=== PATIENT | female | born 1950 | race Caucasian/White ===

== ENCOUNTER 2016-08-29 13:09 | Day surgery (SDC) | payer OTHER ==
[~2016-08-29] VITALS: Ht 167.6 cm; Wt 118.0 kg
[~2016-08-29 13:09] MED LIST: ALBUTEROL2.5 MG/3 M IH; ALLERGY MEDICIN25 M2 PO; ALPRAZOLAM0.5 MG PO; ALPRAZOLAM1 MG PO; ARTIFICIAL TEAR15 M6 BOTH EYES; ATARAX10 MG PO; ATIVAN1 MG PO; AUGMENTIN500 MG PO; BENADRYL25 MG PO; CALCIUM ACETAT667 M2 PO; CALCIUM ACETAT667 MG PO; CALPHRON667 MG PO; CELEXA10 MG PO; CHLORASEPTIC177 ML MM; CITALOPRAM HBR10 MG PO; COUMADIN6 MG PO; DEPAKENE250 MG/5 M PO; DEPAKOTE SPRIN125 MG PO; DEPAKOTE250 MG PO; DEPAKOTE500 MG PO; DILAUDID2 MG PO; DIPHEDRYL25 M3 PO; DULCOLAX10 MG PR; DURAGESIC25 MCG TD; ELIQUIS5 MG PO; EMLA 30 GM30 GM TP; FLEET ENEMA-AD118 ML PR; FLORINEF ACETA0.1 MG PO; FLUDROCORTISON0.1 M1 PO; GABAPENTIN300 MG PO; GERI-TUSSI100 MG/5 M PO; GUAIFENESIN WI120 M1 PO; HEPARIN SO5000 UNITS SC; HYDROMORPHONE HC2 MG PO; KAYEXALATE15 GM/60 M PO; KAYEXALATE453.6 GM PO; KEPPRA1000 MG PO; LEVETIRACETAM1000 MG PO; MIDODRINE HCL10 MG PO; MIRAPEX0.25 MG PO; NEPHRO-VITE,1 TABLET PO; NEURONTIN300 MG PO; OMEPRAZOLE20 MG PO; PRAMIPEXOLE D0.25 MG PO; PRILOSEC20 MG PO; PROAMATINE10 MG PO; PROMETHAZINE HC25 M1 PO; PROVENTIL,2.5 MG/3 M IH; RENVELA800 MG PO; ROBITUSSIN100 MG/51 PO; ROCEPHIN1 GM/50 ML IV; SARNA222 ML TP; SENNA8.6 MG PO; SENSIPAR30 MG PO; SENSIPAR90 MG PO; SKELAXIN800 MG PO; VALPROIC A250 MG/5 M PO; VALPROIC ACID250 MG PO; VANCOMYCIN HCL1 GM IV; VITAMIN D31000 UNI2 PO; WARFARIN SODIU2.5 MG PO; WARFARIN SODIU7.5 MG PO; WARFARIN SODIUM5 MG PO; XANAX0.5 MG PO; XANAX1 MG PO
[2016-08-29 14:40] LABS: METH RESISTANT S AUREUS PCR NEGATIVE (NEGATIVE)
[2016-08-29 14:42] LABS: PROBE CHECK PASS; SPECIMEN PROCESSING CONTROL PASS
== END 2016-08-29 16:11 ==
LOC: CATH 13:09
PROVIDERS: Surgery
PROC: B51W1ZZ Fluoroscopy of Dialysis Shunt/Fistula using Low Osmolar Contrast (ICD-10-PCS; principal; 2016-08-29)
PROC: 057Y3DZ Dilation of Upper Vein with Intraluminal Device, Percutaneous Approach (ICD-10-PCS; principal; 2016-08-29)
PROC: 05HY33Z Insertion of Infusion Device into Upper Vein, Percutaneous Approach (ICD-10-PCS; principal; 2016-08-29)
DX: T82.858A Stenosis of other vascular prosthetic devices, implants and grafts, initial encounter (principal); Y83.2 Surgical operation with anastomosis, bypass or graft as the cause of abnormal reaction of the patient, or of later complication, without mention of misadventure at the time of the procedure; N18.6 End stage renal disease; E03.9 Hypothyroidism, unspecified; Z86.718 Personal history of other venous thrombosis and embolism; Z86.711 Personal history of pulmonary embolism; J45.909 Unspecified asthma, uncomplicated; L93.2 Other local lupus erythematosus; M19.90 Unspecified osteoarthritis, unspecified site; Z79.51 Long term (current) use of inhaled steroids; Z90.5 Acquired absence of kidney
CPT/HCPCS: 87641; C1725; C1769; C1874; C1894; J1200; J1644; J2250; J2930; S0028

== ENCOUNTER 2016-09-04 07:33 | Inpatient (IN) | payer OTHER ==
[~2016-09-04] VITALS: Ht 167.6 cm; Wt 123.1 kg
[2016-09-04] MEDS ORDERED: ASPIR-LOW81 MG PO (08:35)
[2016-09-04 08:36] LABS: HEMATOCRIT 35.8 % (36.0-46.0); MCH 35.8 PG (29.0-34.0); MCHC 31.6 G/DL (30.0-36.0); MCV 113.3 FL (83-99); MEAN PLAT.VOLUME 10.8 uM^3 (9.5-12.4); PLATELET COUNT 101 K/uL (156-360); RBC DIS.WIDTH-CV 16.4 % (11.8-14.6); RBC DIS.WIDTH-SD 64.3 % (39-53); RED BLOOD COUNT 3.16 M/uL (3.80-5.20); WHITE BLOOD COUNT 5.8 K/uL (4.1-10.2)
[2016-09-04 08:47] LABS: CHLORIDE 97 mEq/L (99-109); POTASSIUM 3.9 mEq/L (3.7-5.4); SODIUM 139 mEq/L (136-147)
[2016-09-04 08:48] LABS: GLUCOSE 87 mg/dL (70-99)
[2016-09-04 08:50] LABS: ANION GAP 19 MEQ/L (2-14)
[2016-09-04 08:52] LABS: GFR ESTIMATE (CALCULATED) 5 mL/min/
[2016-09-04 08:53] LABS: UREA NITROGEN (BUN) 71 mg/dL (9-23)
[2016-09-04 08:57] LABS: TROP-I INTERPRETATION NEGATIVE; TROPONIN-I < 0.01 ng/mL (0.0-0.30)
[2016-09-04 14:31] VITALS: BP 132/51
[2016-09-04 18:29] LABS: TROP-I INTERPRETATION NEGATIVE; TROPONIN-I < 0.01 ng/mL (0.0-0.30)
[2016-09-05 00:05] VITALS: BP 88/46
[2016-09-05 01:47] VITALS: BP 94/42
[2016-09-05 04:56] VITALS: BP 88/44
[2016-09-05 07:01] LABS: ANION GAP 17 MEQ/L (2-14); CHLORIDE 100 MEQ/L (99-109); GFR ESTIMATE (CALCULATED) 4 mL/min/; POTASSIUM 4.5 MEQ/L (3.7-5.4); SAMPLE HEMOLYSIS CHECK 0; SAMPLE ICTERIC CHECK 0; SAMPLE LIPEMIA CHECK 0; SODIUM 141 MEQ/L (136-147); UREA NITROGEN (BUN) 88 mg/dL (9-23)
[2016-09-05 07:03] LABS: GLUCOSE 111 mg/dL (70-99)
[2016-09-05 08:15] VITALS: BP 131/81
[2016-09-05 08:50] LABS: HEMATOCRIT 32.4 % (36.0-46.0); MCH 36.8 PG (29.0-34.0); MCHC 32.4 G/DL (30.0-36.0); MCV 113.7 FL (83-99); MEAN PLAT.VOLUME 11.9 uM^3 (9.5-12.4); NRBC (%) 0.8 /100 WBC (0-0); PLATELET COUNT 110 K/uL (156-360); RBC DIS.WIDTH-CV 16.6 % (11.8-14.6); RBC DIS.WIDTH-SD 67.9 % (39-53); RED BLOOD COUNT 2.85 M/uL (3.80-5.20); WHITE BLOOD COUNT 4.5 K/uL (4.1-10.2)
[2016-09-05 08:54] LABS: TROP-I INTERPRETATION NEGATIVE; TROPONIN-I < 0.01 ng/mL (0.0-0.30)
[2016-09-05 09:16] LABS: EOSINOPHIL (%) 1.5 % (0-5); EOSINOPHIL COUNT 0.1 K/uL (0-0.3); IMMATURE GRANULOCYTE (%) 3.1 % (0.0-0.7); IMMATURE GRANULOCYTE COUNT 0.1 K/uL; LYMPHOCYTE COUNT 1.7 K/uL (1.0-2.8); MONOCYTE (%) 13.7 % (3-12); MONOCYTE COUNT 0.6 K/uL (0-0.8); NEUTROPHIL (%) 44.7 % (45-76)
[2016-09-05 09:24] LABS: HEMATOLOGY COMMENT 1 SMEAR COMPATIBLE; USER ID SDF
[2016-09-05 16:03] VITALS: BP 92/60
[2016-09-05 20:00] VITALS: BP 94/44
[2016-09-06 04:35] VITALS: BP 106/51
[2016-09-06 08:00] VITALS: BP 90/50
[2016-09-06 08:38] LABS: BASE EXCESS 3.7 mEq/L (-3 to +3); BICARBONATE 28.5 mEq/L (22-26); CARBOXY HGB 2.4 % (0-5); METHEMOGLOBIN 1.4 % (0-1.5); PCO2 43 mm Hg (35-45); PO2 67 mm Hg (80-100); pH 7.43 (7.35-7.45)
[2016-09-06 08:39] LABS: COMMENTS - BLOOD GASES C+; DEVICE RA; FI02 21 %; O2 FLOW 0 L/MIN; SITE LBRACH; TOTAL RESP RATE 16 resp/min
[2016-09-06 09:18] LABS: HEMATOCRIT 33.1 % (36.0-46.0); MCH 36.5 PG (29.0-34.0); MCHC 31.7 G/DL (30.0-36.0); MCV 114.9 FL (83-99); MEAN PLAT.VOLUME 11.5 uM^3 (9.5-12.4); PLATELET COUNT 117 K/uL (156-360); RBC DIS.WIDTH-CV 17.2 % (11.8-14.6); RBC DIS.WIDTH-SD 71.2 % (39-53); RED BLOOD COUNT 2.88 M/uL (3.80-5.20); WHITE BLOOD COUNT 4.7 K/uL (4.1-10.2)
[2016-09-06 09:26] LABS: ANION GAP 11 MEQ/L (2-14); CHLORIDE 101 MEQ/L (99-109); POTASSIUM 4.4 MEQ/L (3.7-5.4); SAMPLE HEMOLYSIS CHECK 0; SAMPLE ICTERIC CHECK 0; SAMPLE LIPEMIA CHECK 0; SODIUM 139 MEQ/L (136-147)
[2016-09-06 09:27] LABS: POINT-OF-CARE METER ID UU13113681; POINT-OF-CARE USER ID DROKMM72
[2016-09-06 09:32] LABS: GFR ESTIMATE (CALCULATED) 6 mL/min/; GLUCOSE 85 mg/dL (70-99); UREA NITROGEN (BUN) 46 mg/dL (9-23)
[2016-09-06 21:00] VITALS: BP 105/61
[2016-09-07 00:24] VITALS: BP 108/64
[2016-09-07 08:30] VITALS: BP 84/48
[2016-09-07 17:00] VITALS: BP 109/58
[2016-09-07 20:00] VITALS: BP 142/70
[2016-09-08 00:04] VITALS: BP 134/68
[2016-09-08 04:25] VITALS: BP 138/72
[2016-09-08 08:09] LABS: NRBC (%) 1.4 /100 WBC (0-0)
[2016-09-08 08:21] LABS: BASOPHIL COUNT 0.1 K/uL (0-0.1); EOSINOPHIL (%) 0.9 % (0-5); EOSINOPHIL COUNT 0.1 K/uL (0-0.3); HEMATOCRIT 32.6 % (36.0-46.0); IMMATURE GRANULOCYTE (%) 3.2 % (0.0-0.7); IMMATURE GRANULOCYTE COUNT 0.2 K/uL; LYMPHOCYTE COUNT 2.4 K/uL (1.0-2.8); MCH 36.4 PG (29.0-34.0); MCHC 31.6 G/DL (30.0-36.0); MCV 115.2 FL (83-99); MEAN PLAT.VOLUME 10.9 uM^3 (9.5-12.4); MONOCYTE COUNT 0.7 K/uL (0-0.8); PLATELET COUNT 107 K/uL (156-360); RBC DIS.WIDTH-CV 17.4 % (11.8-14.6); RBC DIS.WIDTH-SD 71.2 % (39-53); RED BLOOD COUNT 2.83 M/uL (3.80-5.20)
[2016-09-08 08:23] LABS: WHITE BLOOD COUNT 7.5 K/uL (4.1-10.2)
[2016-09-08 08:38] LABS: ANION GAP 14 MEQ/L (2-14); CHLORIDE 98 MEQ/L (99-109); GFR ESTIMATE (CALCULATED) 6 mL/min/; GLUCOSE 99 mg/dL (70-99); SAMPLE HEMOLYSIS CHECK 0; SAMPLE ICTERIC CHECK 0; SAMPLE LIPEMIA CHECK 0; SODIUM 133 MEQ/L (136-147); UREA NITROGEN (BUN) 55 mg/dL (9-23)
[2016-09-08 08:39] LABS: POTASSIUM 5.4 MEQ/L (3.7-5.4)
[2016-09-08 08:43] LABS: HEMATOLOGY COMMENT 1 SMEAR COMPATIBLE; PLAT.SUFFICIENCY DECREASED
[2016-09-08 17:25] VITALS: BP 136/58
[2016-09-08 20:28] VITALS: BP 140/66
[2016-09-09 00:32] VITALS: BP 148/70
[2016-09-09 04:02] VITALS: BP 143/68
[2016-09-09 05:35] LABS: HEMATOCRIT 38.1 % (36.0-46.0); MCH 37.4 PG (29.0-34.0); MCHC 32.8 G/DL (30.0-36.0); MCV 114.1 FL (83-99); MEAN PLAT.VOLUME 11.7 uM^3 (9.5-12.4); PLATELET COUNT 128 K/uL (156-360); RBC DIS.WIDTH-SD 71.7 % (39-53); RED BLOOD COUNT 3.34 M/uL (3.80-5.20); WHITE BLOOD COUNT 10.8 K/uL (4.1-10.2)
[2016-09-09 06:15] LABS: METH RESISTANT S AUREUS PCR NEGATIVE (NEGATIVE)
[2016-09-09 06:16] LABS: PROBE CHECK PASS; SPECIMEN PROCESSING CONTROL PASS
[2016-09-09 06:31] LABS: ANION GAP 16 MEQ/L (2-14); CHLORIDE 95 MEQ/L (99-109); GFR ESTIMATE (CALCULATED) 8 mL/min/; GLUCOSE 119 mg/dL (70-99); POTASSIUM 5.2 MEQ/L (3.7-5.4); SAMPLE HEMOLYSIS CHECK 0; SAMPLE ICTERIC CHECK 0; SAMPLE LIPEMIA CHECK 0; SODIUM 133 MEQ/L (136-147); UREA NITROGEN (BUN) 43 mg/dL (9-23)
[2016-09-09 19:53] VITALS: BP 129/42
[2016-09-10 06:03] LABS: HEMATOCRIT 33.9 % (36.0-46.0); MCH 36.3 PG (29.0-34.0); MCHC 32.2 G/DL (30.0-36.0); MEAN PLAT.VOLUME 11.1 uM^3 (9.5-12.4); NRBC (%) 1.3 /100 WBC (0-0); PLATELET COUNT 99 K/uL (156-360); RBC DIS.WIDTH-CV 18.1 % (11.8-14.6); RBC DIS.WIDTH-SD 72.7 % (39-53)
[2016-09-10 06:14] LABS: BASOPHIL COUNT 0.1 K/uL (0-0.1); EOSINOPHIL (%) 0.9 % (0-5); EOSINOPHIL COUNT 0.1 K/uL (0-0.3); IMMATURE GRANULOCYTE (%) 2.4 % (0.0-0.7); IMMATURE GRANULOCYTE COUNT 0.3 K/uL; LYMPHOCYTE COUNT 2.3 K/uL (1.0-2.8); MONOCYTE (%) 9.4 % (3-12); NEUTROPHIL (%) 66.2 % (45-76); NEUTROPHIL COUNT 7.3 K/uL (1.8-6.4)
[2016-09-10 06:45] LABS: ANION GAP 19 MEQ/L (2-14); CHLORIDE 95 MEQ/L (99-109); GLUCOSE 101 mg/dL (70-99); POTASSIUM 4.8 MEQ/L (3.7-5.4); SAMPLE HEMOLYSIS CHECK 0; SAMPLE ICTERIC CHECK 0; SAMPLE LIPEMIA CHECK 0; SODIUM 134 MEQ/L (136-147); UREA NITROGEN (BUN) 64 mg/dL (9-23)
[2016-09-10 06:47] LABS: ANISOCYTOSIS 2+; MACROCYTES 1+; MICROCYTOSIS 1+; OVALOCYTES 1+; PLAT.SUFFICIENCY DECREASED; SPHEROCYTES 1+
[2016-09-10 06:51] LABS: GFR ESTIMATE (CALCULATED) 6 mL/min/
[2016-09-10 08:03] VITALS: BP 124/68
[2016-09-10 12:09] VITALS: BP 128/66
[2016-09-10 15:43] VITALS: BP 117/69
[2016-09-11 05:34] LABS: HEMATOCRIT 32.1 % (36.0-46.0); MCH 35.8 PG (29.0-34.0); MCHC 31.5 G/DL (30.0-36.0); MCV 113.8 FL (83-99); MEAN PLAT.VOLUME 10.9 uM^3 (9.5-12.4); PLATELET COUNT 88 K/uL (156-360); RBC DIS.WIDTH-CV 18.2 % (11.8-14.6); RBC DIS.WIDTH-SD 72.5 % (39-53); RED BLOOD COUNT 2.82 M/uL (3.80-5.20); WHITE BLOOD COUNT 9.7 K/uL (4.1-10.2)
[2016-09-11 06:18] LABS: EOSINOPHIL (%) 1.2 % (0-5); EOSINOPHIL COUNT 0.1 K/uL (0-0.3); IMMATURE GRANULOCYTE (%) 2.3 % (0.0-0.7); IMMATURE GRANULOCYTE COUNT 0.2 K/uL; LYMPHOCYTE COUNT 2.3 K/uL (1.0-2.8); MONOCYTE (%) 9.9 % (3-12); NEUTROPHIL (%) 62.5 % (45-76); NEUTROPHIL COUNT 6.1 K/uL (1.8-6.4)
[2016-09-11 06:20] LABS: HEMATOLOGY COMMENT 1 REV; USER ID SLU
[2016-09-11 06:24] LABS: ANION GAP 18 MEQ/L (2-14); CHLORIDE 95 MEQ/L (99-109); GFR ESTIMATE (CALCULATED) 4 mL/min/; GLUCOSE 84 mg/dL (70-99); POTASSIUM 5.1 MEQ/L (3.7-5.4); SAMPLE HEMOLYSIS CHECK 0; SAMPLE ICTERIC CHECK 0; SAMPLE LIPEMIA CHECK 0; SODIUM 134 MEQ/L (136-147); UREA NITROGEN (BUN) 77 mg/dL (9-23)
[2016-09-11 09:36] LABS: ANION GAP 21 MEQ/L (2-14); CHLORIDE 94 MEQ/L (99-109); GFR ESTIMATE (CALCULATED) 5 mL/min/; POTASSIUM 4.6 MEQ/L (3.7-5.4); SAMPLE HEMOLYSIS CHECK 0; SAMPLE ICTERIC CHECK 0; SAMPLE LIPEMIA CHECK 0; SODIUM 133 MEQ/L (136-147); UREA NITROGEN (BUN) 79 mg/dL (9-23)
[2016-09-11 09:39] LABS: GLUCOSE 113 mg/dL (70-99)
[2016-09-12] MEDS ORDERED: LEVAQUIN500 MG PO ×2 (12:19→12:53)
== END 2016-09-12 15:03 | DRG 193 ==
LOC: EME 07:33 → EDOF 10:35 → 5WEST 10:35 → EDOF 11:25 → 5WEST 14:10 → 3EAST 09-06 23:12 → 5WEST 09-06 23:12 → 3EAST 09-07 03:44
PROVIDERS: Emergency Medicine; Hospitalist; Internal Medicine; Internal Medicine Nephrology; Physician Assistant; Student in an Organized Health Care Education/Training Program
PROC: 5A1D60Z (ICD-10-PCS; principal; 2016-09-05)
DX: J18.9 Pneumonia, unspecified organism (principal); N18.6 End stage renal disease; Y95 Nosocomial condition; R07.9 Chest pain, unspecified; N25.81 Secondary hyperparathyroidism of renal origin; G40.909 Epilepsy, unspecified, not intractable, without status epilepticus; I95.89 Other hypotension; E66.01 Morbid (severe) obesity due to excess calories; Z68.41 Body mass index [BMI] 40.0-44.9, adult; J96.11 Chronic respiratory failure with hypoxia; Z99.81 Dependence on supplemental oxygen; Z99.2 Dependence on renal dialysis; Z86.711 Personal history of pulmonary embolism; Z86.718 Personal history of other venous thrombosis and embolism; Z85.528 Personal history of other malignant neoplasm of kidney; Z90.5 Acquired absence of kidney; K21.9 Gastro-esophageal reflux disease without esophagitis; F32.9 Major depressive disorder, single episode, unspecified; J44.9 Chronic obstructive pulmonary disease, unspecified; D64.9 Anemia, unspecified; G62.9 Polyneuropathy, unspecified; G89.29 Other chronic pain
CPT/HCPCS: 36600; 70450; 71020; 71250; 80048; 80048 91; 80069; 80164; 80185; 82140; 82803; 82948; 84484; 85025; 85025 91; 85027; 87070; 87205; 87641; 93005; 94760; 94799; 99202; 99281; 99285; G0378; J0456; J0692; J0780; J1100; J1270; J1644; J7030; J7050

== ENCOUNTER 2016-09-20 12:15 | Inpatient (IN) | payer OTHER ==
[~2016-09-20] VITALS: Ht 167.6 cm; Wt 115.6 kg
[~2016-09-20 12:15] MED LIST changes: +ASPIR-LOW81 MG PO; +LEVAQUIN500 MG PO
[2016-09-20 14:45] LABS: CHLORIDE 98 mEq/L (99-109); INTER. NORMALIZED RATIO 1.1; POTASSIUM 3.2 mEq/L (3.7-5.4); PROTHROMBIN TIME 10.7 (9.2-11.2); PTT 28.3 (25-32)
[2016-09-20 14:46] LABS: EOSINOPHIL (%) 0.9 % (0-5); EOSINOPHIL COUNT 0.1 K/uL (0-0.3); HEMATOCRIT 32.8 % (36.0-46.0); IMMATURE GRANULOCYTE (%) 1.8 % (0.0-0.7); IMMATURE GRANULOCYTE COUNT 1.2 K/uL; LYMPHOCYTE COUNT 1.2 K/uL (1.0-2.8); MCH 36.4 PG (29.0-34.0); MCHC 31.7 G/DL (30.0-36.0); MCV 114.7 FL (83-99); MEAN PLAT.VOLUME 9.8 uM^3 (9.5-12.4); MONOCYTE (%) 9.6 % (3-12); MONOCYTE COUNT 0.6 K/uL (0-0.8); NEUTROPHIL (%) 69.7 % (45-76); NEUTROPHIL COUNT 4.5 K/uL (1.8-6.4); PLATELET COUNT 155 K/uL (156-360); RBC DIS.WIDTH-CV 17.5 % (11.8-14.6); RBC DIS.WIDTH-SD 71.2 % (39-53); RED BLOOD COUNT 2.86 M/uL (3.80-5.20); SODIUM 138 mEq/L (136-147); WHITE BLOOD COUNT 6.5 K/uL (4.1-10.2)
[2016-09-20 14:47] LABS: GLUCOSE 92 mg/dL (70-99)
[2016-09-20 14:49] LABS: ANION GAP 11 MEQ/L (2-14)
[2016-09-20 14:51] LABS: GFR ESTIMATE (CALCULATED) 14 mL/min/
[2016-09-20 14:52] LABS: UREA NITROGEN (BUN) 20 mg/dL (9-23)
[2016-09-20 15:22] LABS: TROP-I INTERPRETATION NEGATIVE; TROPONIN-I 0.03 ng/mL (0.0-0.30)
[2016-09-20] MEDS ORDERED: TYLENOL REGULA325 MG PO (16:19)
[2016-09-20] MEDS ORDERED: NITROSTAT0.4 MG SL (16:20)
[2016-09-20] MEDS ORDERED: DULCOLAX10 MG PR (16:20)
[2016-09-20 16:43] LABS: TROP-I INTERPRETATION NEGATIVE; TROPONIN-I 0.03 ng/mL (0.0-0.30)
[2016-09-20 18:02] VITALS: BP 88/45
[2016-09-20 20:02] VITALS: BP 88/52
[2016-09-20 21:39] LABS: POINT-OF-CARE METER ID UU13113781
[2016-09-20 22:25] LABS: TROP-I INTERPRETATION NEGATIVE; TROPONIN-I 0.02 ng/mL (0.0-0.30)
[2016-09-20 23:35] VITALS: BP 89/49
[2016-09-21 04:07] VITALS: BP 84/51
[2016-09-21 08:09] LABS: METH RESISTANT S AUREUS PCR NEGATIVE (NEGATIVE)
[2016-09-21 08:11] LABS: PROBE CHECK PASS; SPECIMEN PROCESSING CONTROL PASS
[2016-09-21 08:30] VITALS: BP 104/49
[2016-09-21 10:52] LABS: ANION GAP 14 MEQ/L (2-14); CHLORIDE 102 MEQ/L (99-109); POTASSIUM 3.6 MEQ/L (3.7-5.4); SAMPLE HEMOLYSIS CHECK 0; SAMPLE ICTERIC CHECK 0; SAMPLE LIPEMIA CHECK 0; SODIUM 139 MEQ/L (136-147)
[2016-09-21 10:57] LABS: GFR ESTIMATE (CALCULATED) 9 mL/min/; GLUCOSE 89 mg/dL (70-99)
[2016-09-21 11:17] LABS: UREA NITROGEN (BUN) 31 mg/dL (9-23)
[2016-09-21 12:20] VITALS: BP 80/41
[2016-09-21 16:45] VITALS: BP 86/54
[2016-09-21 20:00] VITALS: BP 100/48
[2016-09-22] VITALS: BP 98/59
[2016-09-22 04:00] VITALS: BP 95/57
[2016-09-22 07:54] LABS: HEMATOCRIT 27.4 % (36.0-46.0); MCH 35.8 PG (29.0-34.0); MCHC 31.4 G/DL (30.0-36.0); MCV 114.2 FL (83-99); MEAN PLAT.VOLUME 10.6 uM^3 (9.5-12.4); PLATELET COUNT 127 K/uL (156-360); RBC DIS.WIDTH-CV 17.5 % (11.8-14.6); RBC DIS.WIDTH-SD 71.7 % (39-53); WHITE BLOOD COUNT 4.7 K/uL (4.1-10.2)
[2016-09-22 08:09] LABS: EOSINOPHIL (%) 2.8 % (0-5); EOSINOPHIL COUNT 0.1 K/uL (0-0.3); IMMATURE GRANULOCYTE (%) 1.5 % (0.0-0.7); IMMATURE GRANULOCYTE COUNT 0.1 K/uL; LYMPHOCYTE COUNT 1.5 K/uL (1.0-2.8); MONOCYTE (%) 11.3 % (3-12); MONOCYTE COUNT 0.5 K/uL (0-0.8); NEUTROPHIL (%) 52.6 % (45-76); NEUTROPHIL COUNT 2.5 K/uL (1.8-6.4)
[2016-09-22 08:12] LABS: ANION GAP 12 MEQ/L (2-14); CHLORIDE 101 MEQ/L (99-109); GLUCOSE 100 mg/dL (70-99); POTASSIUM 3.6 MEQ/L (3.7-5.4); SAMPLE HEMOLYSIS CHECK 0; SAMPLE ICTERIC CHECK 0; SAMPLE LIPEMIA CHECK 0; SODIUM 138 MEQ/L (136-147)
[2016-09-22 08:13] LABS: GFR ESTIMATE (CALCULATED) 8 mL/min/; UREA NITROGEN (BUN) 49 mg/dL (9-23)
[2016-09-22 11:47] VITALS: BP 77/34
[2016-09-22 17:00] VITALS: BP 101/52
[2016-09-22 19:45] VITALS: BP 88/54
[2016-09-22 23:50] VITALS: BP 90/51
[2016-09-23 03:20] VITALS: BP 80/51
[2016-09-23 08:30] VITALS: BP 81/45
[2016-09-23 12:19] VITALS: BP 97/46
[2016-09-23 15:01] LABS: POC NON-PRINT COM 1 ND
[2016-09-23 15:15] LABS: HEMATOCRIT 28.6 % (36.0-46.0); MCH 35.7 PG (29.0-34.0); MCHC 31.5 G/DL (30.0-36.0); MCV 113.5 FL (83-99); MEAN PLAT.VOLUME 10.6 uM^3 (9.5-12.4); PLATELET COUNT 127 K/uL (156-360); RBC DIS.WIDTH-CV 17.4 % (11.8-14.6); RBC DIS.WIDTH-SD 71.3 % (39-53); RED BLOOD COUNT 2.52 M/uL (3.80-5.20); WHITE BLOOD COUNT 4.8 K/uL (4.1-10.2)
[2016-09-23 15:23] LABS: EOSINOPHIL (%) 3.5 % (0-5); EOSINOPHIL COUNT 0.2 K/uL (0-0.3); IMMATURE GRANULOCYTE (%) 1.2 % (0.0-0.7); IMMATURE GRANULOCYTE COUNT 0.1 K/uL; LYMPHOCYTE COUNT 1.5 K/uL (1.0-2.8); MONOCYTE (%) 8.5 % (3-12); MONOCYTE COUNT 0.4 K/uL (0-0.8); NEUTROPHIL (%) 54.9 % (45-76); NEUTROPHIL COUNT 2.6 K/uL (1.8-6.4)
[2016-09-23 16:00] VITALS: BP 105/52
[2016-09-23 20:34] VITALS: BP 86/39
[2016-09-24] VITALS (7 sets, daily range): BP systolic 72–86; BP diastolic 43–51
[2016-09-24 07:49] LABS: HEMATOCRIT 28.8 % (36.0-46.0); MCH 35.7 PG (29.0-34.0); MCHC 31.6 G/DL (30.0-36.0); MCV 112.9 FL (83-99); MEAN PLAT.VOLUME 10.6 uM^3 (9.5-12.4); PLATELET COUNT 121 K/uL (156-360); RBC DIS.WIDTH-CV 17.3 % (11.8-14.6); RBC DIS.WIDTH-SD 71.4 % (39-53); RED BLOOD COUNT 2.55 M/uL (3.80-5.20)
[2016-09-24 08:13] LABS: IRON 46 MCG/DL (35-150)
[2016-09-24 08:31] LABS: FERRITIN 823 NG/ML (10-291)
[2016-09-24 14:24] LABS: POINT-OF-CARE METER ID UU13113781
[2016-09-24 16:41] LABS: ALKALINE PHOSPHATASE 133 IU/L (3-129); AMYLASE 28 IU/L (1-118); DIRECT BILIRUBIN 0.2 mg/dL (0.0-0.3); TOTAL BILIRUBIN 0.3 MG/DL (0.0-1.0)
[2016-09-25] VITALS (10 sets, daily range): BP systolic 72–83; BP diastolic 32–46
[2016-09-25 09:15] LABS: CHLORIDE 102 mEq/L (99-109); POTASSIUM 4.1 mEq/L (3.7-5.4); SODIUM 139 mEq/L (136-147)
[2016-09-25 09:17] LABS: GLUCOSE 101 mg/dL (70-99)
[2016-09-25 09:18] LABS: ANION GAP 19 MEQ/L (2-14)
[2016-09-25 09:21] LABS: GFR ESTIMATE (CALCULATED) 7 mL/min/
[2016-09-25 09:24] LABS: UREA NITROGEN (BUN) 76 mg/dL (9-23)
[2016-09-25 09:41] LABS: HEMATOCRIT 27.7 % (36.0-46.0); MCH 35.3 PG (29.0-34.0); MCHC 32.1 G/DL (30.0-36.0); MCV 109.9 FL (83-99); PLATELET COUNT 133 K/uL (156-360); RBC DIS.WIDTH-CV 17.1 % (11.8-14.6); RBC DIS.WIDTH-SD 68.7 % (39-53); RED BLOOD COUNT 2.52 M/uL (3.80-5.20); WHITE BLOOD COUNT 7.7 K/uL (4.1-10.2)
[2016-09-25 09:42] LABS: EOSINOPHIL (%) 2.5 % (0-5); EOSINOPHIL COUNT 0.2 K/uL (0-0.3); IMMATURE GRANULOCYTE (%) 0.8 % (0.0-0.7); IMMATURE GRANULOCYTE COUNT 0.1 K/uL; LYMPHOCYTE COUNT 1.4 K/uL (1.0-2.8); MONOCYTE COUNT 0.5 K/uL (0-0.8); NEUTROPHIL (%) 72.9 % (45-76); NEUTROPHIL COUNT 5.6 K/uL (1.8-6.4)
[2016-09-26 03:35] VITALS: BP 78/37
[2016-09-26 08:44] VITALS: BP 75/39
[2016-09-26 12:02] VITALS: BP 82/41
[2016-09-26 15:04] VITALS: BP 79/40
[2016-09-26 19:15] VITALS: BP 78/44
[2016-09-26 23:06] VITALS: BP 77/42
[2016-09-27 03:05] VITALS: BP 100/50
[2016-09-27 07:27] VITALS: BP 98/44
[2016-09-27 08:58] LABS: HEMATOCRIT 27.9 % (36.0-46.0); MCH 35.6 PG (29.0-34.0); MCHC 32.3 G/DL (30.0-36.0); MCV 110.3 FL (83-99); RBC DIS.WIDTH-CV 16.8 % (11.8-14.6); RED BLOOD COUNT 2.53 M/uL (3.80-5.20); WHITE BLOOD COUNT 5.4 K/uL (4.1-10.2)
[2016-09-27 09:10] LABS: ANION GAP 18 MEQ/L (2-14); CHLORIDE 94 MEQ/L (99-109); SAMPLE HEMOLYSIS CHECK 0; SAMPLE ICTERIC CHECK 0; SAMPLE LIPEMIA CHECK 0; SODIUM 135 MEQ/L (136-147)
[2016-09-27 09:23] LABS: GFR ESTIMATE (CALCULATED) 9 mL/min/; GLUCOSE 85 mg/dL (70-99); UREA NITROGEN (BUN) 58 mg/dL (9-23)
[2016-09-27 10:14] LABS: EOSINOPHIL (%) 2.4 % (0-5); EOSINOPHIL COUNT 0.1 K/uL (0-0.3); IMMATURE GRANULOCYTE (%) 1.3 % (0.0-0.7); IMMATURE GRANULOCYTE COUNT 0.1 K/uL; LYMPHOCYTE COUNT 1.3 K/uL (1.0-2.8); MEAN PLAT.VOLUME 11.6 uM^3 (9.5-12.4); MONOCYTE COUNT 0.5 K/uL (0-0.8); NEUTROPHIL (%) 62.9 % (45-76); NEUTROPHIL COUNT 3.4 K/uL (1.8-6.4); PLAT.SUFFICIENCY ADEQUATE; USER ID STC
[2016-09-27 12:54] VITALS: BP 75/41
[2016-09-27] MEDS ORDERED: BENTYL20 MG PO (14:18)
[2016-09-27] MEDS ORDERED: PROMETHAZINE HC25 M1 PO (14:18)
[2016-09-27] MEDS ORDERED: ASPIR-LOW81 MG PO (14:19)
[2016-09-27] MEDS ORDERED: HYDROXYZINE PAM25 MG PO (14:20)
[2016-09-27] MEDS ORDERED: COMPAZINE10 MG PO (14:21)
[2016-09-27] MEDS ORDERED: POLYETHYLENE GL17 GM PO (14:21)
[2016-09-27] MEDS ORDERED: RENVELA800 MG PO (14:21)
[2016-09-27] MEDS ORDERED: HECTOROL4 MCG/2 M1 IV (14:22)
[2016-09-27] MEDS ORDERED: ONDANSETRON ODT4 MG PO (14:22)
[2016-09-27] MEDS ORDERED: NEPHRO-VITE,1 TABLET PO (14:22)
[2016-09-27] MEDS ORDERED: VITAMIN D-32000 UNI2 PO (14:22)
[2016-09-27] MEDS ORDERED: PANTOPRAZOLE SO40 MG PO (14:22)
[2016-09-27] MEDS ORDERED: ALPRAZOLAM0.5 MG PO (14:23)
[2016-09-27] MEDS ORDERED: DILAUDID2 MG PO (14:23)
[2016-09-27 16:41] VITALS: BP 78/40
[2016-09-27 22:43] LABS: AP Bone Isoenzyme 74 % (28-66); AP Intestine Isoenzyme 0 % (1-24); AP Liver Isoenzyme 26 % (25-69); AP Macrohepatic Isoenzyme 0 % (<=0); AP Placental Isoenzyme 0 % (<=0); Alkaline Phosphatase, Total 162 U/L (33-130)
== END 2016-09-27 17:18 | DRG 602 ==
LOC: EME 12:15 → EDOF 14:08 → 4EAST 14:08 → EDOF 14:15 → 4EAST 17:49
PROVIDERS: Emergency Medicine; Family Medicine; Internal Medicine Nephrology; Specialist
PROC: 5A1D60Z (ICD-10-PCS; principal; 2016-09-22)
DX: L03.116 Cellulitis of left lower limb (principal); N18.6 End stage renal disease; I24.8 Other forms of acute ischemic heart disease; I95.9 Hypotension, unspecified; Z91.19 Patient's noncompliance with other medical treatment and regimen; J96.10 Chronic respiratory failure, unspecified whether with hypoxia or hypercapnia; R07.9 Chest pain, unspecified; Z99.2 Dependence on renal dialysis; J44.9 Chronic obstructive pulmonary disease, unspecified; R26.2 Difficulty in walking, not elsewhere classified; K21.9 Gastro-esophageal reflux disease without esophagitis; D64.9 Anemia, unspecified; G62.9 Polyneuropathy, unspecified; Z86.718 Personal history of other venous thrombosis and embolism; Z86.711 Personal history of pulmonary embolism; G25.81 Restless legs syndrome; Z90.5 Acquired absence of kidney; G40.909 Epilepsy, unspecified, not intractable, without status epilepticus; E21.3 Hyperparathyroidism, unspecified; I12.0 Hypertensive chronic kidney disease with stage 5 chronic kidney disease or end stage renal disease; K92.1 Melena; Z74.01 Bed confinement status; D69.6 Thrombocytopenia, unspecified
CPT/HCPCS: 71010; 76937; 80048; 80069; 80076; 80202; 82150; 82272; 82533 91; 82607; 82728; 82746; 82948; 83540; 83605; 84075 90; 84080 90; 84466; 84484; 85025; 85025 91; 85027; 85610; 85730; 87040; 87641; 93005; 94799; 99281; 99285; C1894; J0692; J1270; J1644; J3370; J7040; J7050; P9047

== ENCOUNTER 2016-10-16 12:48 | Inpatient (IN) | payer OTHER ==
[~2016-10-16] VITALS: Ht 167.6 cm; Wt 129.3 kg
[~2016-10-16 12:48] MED LIST changes: +BENTYL20 MG PO; +COMPAZINE10 MG PO; +HECTOROL4 MCG/2 M1 IV; +HYDROXYZINE PAM25 MG PO; +NITROSTAT0.4 MG SL; +ONDANSETRON ODT4 MG PO; +PANTOPRAZOLE SO40 MG PO; +POLYETHYLENE GL17 GM PO; +TYLENOL REGULA325 MG PO; +VITAMIN D-32000 UNI2 PO
[2016-10-16] MEDS ORDERED: DILAUDID2 MG PO ×2 (13:21→13:34)
[2016-10-16] MEDS ORDERED: SENNA8.6 MG PO (13:23)
[2016-10-16] MEDS ORDERED: PROAMATINE10 MG PO ×2 (13:24→13:32)
[2016-10-16] MEDS ORDERED: XANAX0.5 MG PO ×2 (13:26→13:35)
[2016-10-16] MEDS ORDERED: PROMETHAZINE HC25 M1 PO (13:36)
[2016-10-16] MEDS ORDERED: LIDOCAINE-PRIL1 EACH TP (13:37)
[2016-10-16] MEDS ORDERED: MILK OF MAGN PO (13:39)
[2016-10-16 13:52] LABS: CHLORIDE 99 mEq/L (99-109); POTASSIUM 3.5 mEq/L (3.7-5.4); SODIUM 140 mEq/L (136-147)
[2016-10-16 13:54] LABS: GLUCOSE 97 mg/dL (70-99)
[2016-10-16 13:55] LABS: ANION GAP 11 MEQ/L (2-14)
[2016-10-16 13:56] LABS: TOTAL BILIRUBIN 0.4 mg/dL (0.0-1.0)
[2016-10-16 13:58] LABS: ALKALINE PHOSPHATASE 183 IU/L (3-129); GFR ESTIMATE (CALCULATED) 11 mL/min/
[2016-10-16 13:59] LABS: UREA NITROGEN (BUN) 20 mg/dL (9-23)
[2016-10-16 14:00] LABS: DIRECT BILIRUBIN 0.2 mg/dL (0.0-0.3)
[2016-10-16 14:01] LABS: LIPASE 10 U/L (1.0-51.0)
[2016-10-16 14:02] LABS: CREATINE KINASE 13 IU/L (1-294)
[2016-10-16 14:08] LABS: EOSINOPHIL (%) 1.1 % (0-5); EOSINOPHIL COUNT 0.1 K/uL (0-0.3); HEMATOCRIT 38.7 % (36.0-46.0); IMMATURE GRANULOCYTE (%) 1.9 % (0.0-0.7); IMMATURE GRANULOCYTE COUNT 0.9 K/uL; LYMPHOCYTE COUNT 1.2 K/uL (1.0-2.8); MCH 35.1 PG (29.0-34.0); MCV 113.2 FL (83-99); MONOCYTE (%) 9.1 % (3-12); MONOCYTE COUNT 0.4 K/uL (0-0.8); NEUTROPHIL (%) 62.3 % (45-76); NEUTROPHIL COUNT 2.9 K/uL (1.8-6.4); RBC DIS.WIDTH-CV 16.6 % (11.8-14.6); RBC DIS.WIDTH-SD 66.8 % (39-53); TROP-I INTERPRETATION NEGATIVE; TROPONIN-I < 0.01 ng/mL (0.0-0.30); WHITE BLOOD COUNT 4.6 K/uL (4.1-10.2)
[2016-10-16 14:10] LABS: RED BLOOD COUNT 3.42 M/uL (3.80-5.20)
[2016-10-16 14:17] LABS: HEMATOLOGY COMMENT 1 SMEAR COMPATIBLE; MEAN PLAT.VOLUME 10.9 uM^3 (9.5-12.4); PLAT.SUFFICIENCY DECREASED; USER ID TLW
[2016-10-16 14:20] LABS: PLATELET COUNT 84 K/uL (156-360)
[2016-10-16 14:29] LABS: ADD MIUA? YES; BILIRUBIN NEGATIVE; BLOOD MODERATE; COLOR YELLOW ((YELLOW)); GLUCOSE (STRIP) NEGATIVE; KETONES NEGATIVE; LEUKOCYTES NEGATIVE; NITRITE NEGATIVE; PROTEIN (STRIP) 100; SPECIFIC GRAVITY 1.011 (1.000-1.030); UROBILINOGEN 0.2 MG/DL (0.2-1.0)
[2016-10-16 14:40] LABS: BACTERIA NONE SEEN /HPF; EPITHELIAL CELLS RARE /HPF; MUCUS NONE SEEN /LPF; RED BLOOD CELLS 0-5 /HPF (0-5); UCUL ADDED? NO; WHITE BLOOD CELLS 0-5 /HPF (0-5)
[2016-10-16 19:06] LABS: INTER. NORMALIZED RATIO 1.1; PROTHROMBIN TIME 11.4 (9.2-11.2); PTT 26.8 (25-32)
[2016-10-16 20:00] VITALS: BP 125/80
[2016-10-16 23:30] VITALS: BP 86/43
[2016-10-17 03:45] VITALS: BP 82/35
[2016-10-17 09:34] VITALS: BP 105/46
[2016-10-17 09:46] LABS: HEMATOCRIT 32.5 % (36.0-46.0); MCH 35.2 PG (29.0-34.0); MCHC 31.4 G/DL (30.0-36.0); MCV 112.1 FL (83-99); MEAN PLAT.VOLUME 11.4 uM^3 (9.5-12.4); PLATELET COUNT 89 K/uL (156-360); RBC DIS.WIDTH-CV 16.9 % (11.8-14.6); RBC DIS.WIDTH-SD 68.9 % (39-53); WHITE BLOOD COUNT 3.2 K/uL (4.1-10.2)
[2016-10-17 16:45] VITALS: BP 113/64
== END 2016-10-17 19:02 | disposition short-term general hospital (02) | DRG 299 ==
LOC: EME → EDBD 12:48 → EME 12:48 → EDOF 17:46 → 5EAST 17:46
PROVIDERS: Emergency Medicine; Family Medicine
DX: I82.423 Acute embolism and thrombosis of iliac vein, bilateral (principal); N18.6 End stage renal disease; J96.11 Chronic respiratory failure with hypoxia; I95.9 Hypotension, unspecified; E66.01 Morbid (severe) obesity due to excess calories; Z68.42 Body mass index [BMI] 45.0-49.9, adult; Z85.528 Personal history of other malignant neoplasm of kidney; J44.9 Chronic obstructive pulmonary disease, unspecified; G40.909 Epilepsy, unspecified, not intractable, without status epilepticus; G89.29 Other chronic pain; Z86.711 Personal history of pulmonary embolism; Z86.718 Personal history of other venous thrombosis and embolism; R26.2 Difficulty in walking, not elsewhere classified; G57.93 Unspecified mononeuropathy of bilateral lower limbs; Z99.2 Dependence on renal dialysis; R00.0 Tachycardia, unspecified
CPT/HCPCS: 70450; 71010; 74176; 80048; 80076; 81003; 82550; 83690; 83880; 84484; 85025; 85027; 85610; 85730; 93005; 93970; 99281; 99284; J3010

== ENCOUNTER 2016-11-03 08:06 | Inpatient (IN) | payer OTHER ==
[~2016-11-03] VITALS: Ht 167.6 cm; Wt 138.5 kg
[~2016-11-03 08:06] MED LIST changes: +LIDOCAINE-PRIL1 EACH TP; +MILK OF MAGN PO
[2016-11-03 09:17] LABS: EOSINOPHIL (%) 2.2 % (0-5); EOSINOPHIL COUNT 0.1 K/uL (0-0.3); HEMATOCRIT 37.9 % (36.0-46.0); IMMATURE GRANULOCYTE (%) 0.8 % (0.0-0.7); INSTRUMENT ABS NEUTROPHIL CT 1.5 K/uL; LYMPHOCYTE COUNT 1.6 K/uL (1.0-2.8); MCH 35.2 PG (29.0-34.0); MCHC 31.4 G/DL (30.0-36.0); MCV 112.1 FL (83-99); MEAN PLAT.VOLUME 10.5 uM^3 (9.5-12.4); MONOCYTE (%) 8.1 % (3-12); MONOCYTE COUNT 0.3 K/uL (0-0.8); NEUTROPHIL (%) 43.4 % (45-76); NEUTROPHIL COUNT 1.5 K/uL (1.8-6.4); RBC DIS.WIDTH-CV 15.8 % (11.8-14.6); RBC DIS.WIDTH-SD 65.3 % (39-53); RED BLOOD COUNT 3.38 M/uL (3.80-5.20); WHITE BLOOD COUNT 3.6 K/uL (4.1-10.2)
[2016-11-03 09:18] LABS: PLATELET COUNT 150 K/uL (156-360)
[2016-11-03 09:20] LABS: INTER. NORMALIZED RATIO 1.8
[2016-11-03 09:21] LABS: PROTHROMBIN TIME 18.7 (9.2-11.2)
[2016-11-03 09:22] LABS: CHLORIDE 97 mEq/L (99-109); POTASSIUM 3.6 mEq/L (3.7-5.4); SODIUM 142 mEq/L (136-147)
[2016-11-03 09:24] LABS: GLUCOSE 82 mg/dL (70-99)
[2016-11-03 09:25] LABS: ANION GAP 14 MEQ/L (2-14)
[2016-11-03 09:26] LABS: TOTAL BILIRUBIN 0.6 mg/dL (0.0-1.0)
[2016-11-03 09:29] LABS: ALKALINE PHOSPHATASE 159 IU/L (3-129); GFR ESTIMATE (CALCULATED) 7 mL/min/; UREA NITROGEN (BUN) 53 mg/dL (9-23)
[2016-11-03 09:37] LABS: PTT 33.7 (25-32)
[2016-11-03 17:57] LABS: HEMATOCRIT 29.3 % (36.0-46.0); MCV 109.7 FL (83-99)
[2016-11-03] MEDS ORDERED: NEPHRO-VITE,1 TABLET PO (18:11)
[2016-11-03] MEDS ORDERED: ARTIFICIAL TEAR1510 BOTH EYES (18:12)
[2016-11-03] MEDS ORDERED: DEPAKENE250 MG PO (18:13)
[2016-11-03] MEDS ORDERED: CORTEF10 MG PO (18:16)
[2016-11-03] MEDS ORDERED: CORTEF5 M1 PO (18:21)
[2016-11-03] MEDS ORDERED: COUMADIN1 MG PO (18:23)
[2016-11-03] MEDS ORDERED: COUMADIN5 MG PO (18:24)
[2016-11-03 19:19] VITALS: BP 116/61
[2016-11-03 23:06] VITALS: BP 93/45
[2016-11-03 23:10] VITALS: BP 103/55
[2016-11-04] VITALS (15 sets, daily range): BP systolic 71–155; BP diastolic 30–85
[2016-11-04] MEDS ORDERED: ARTIFICIAL TEAR15 M1 BOTH EYES (05:46)
[2016-11-04 07:08] LABS: INTER. NORMALIZED RATIO 1.4; PROTHROMBIN TIME 14.7 (9.2-11.2)
[2016-11-04 07:14] LABS: ANION GAP 19 MEQ/L (2-14); CHLORIDE 98 MEQ/L (99-109); POTASSIUM 3.6 MEQ/L (3.7-5.4); SAMPLE HEMOLYSIS CHECK 0; SAMPLE ICTERIC CHECK 0; SAMPLE LIPEMIA CHECK 0; SODIUM 141 MEQ/L (136-147)
[2016-11-04 07:19] LABS: GFR ESTIMATE (CALCULATED) 6 mL/min/; UREA NITROGEN (BUN) 59 mg/dL (9-23)
[2016-11-04 07:22] LABS: GLUCOSE 147 mg/dL (70-99)
[2016-11-04 07:41] LABS: HEMATOCRIT 20.2 % (36.0-46.0); MCH 34.7 PG (29.0-34.0); MCHC 32.7 G/DL (30.0-36.0); MCV 106.3 FL (83-99); NRBC (%) 0.5 /100 WBC (0-0); RBC DIS.WIDTH-SD 71.9 % (39-53); WHITE BLOOD COUNT 4.2 K/uL (4.1-10.2)
[2016-11-04 08:09] LABS: PLATELET COUNT UNABLE TO REPORT K/uL (156-360)
[2016-11-05 08:05] VITALS: BP 136/72
[2016-11-05 13:55] LABS: EOSINOPHIL (%) 5.6 % (0-5); EOSINOPHIL COUNT 0.3 K/uL (0-0.3); HEMATOCRIT 25.1 % (36.0-46.0); IMMATURE GRANULOCYTE (%) 1.1 % (0.0-0.7); IMMATURE GRANULOCYTE COUNT 0.1 K/uL; LYMPHOCYTE COUNT 1.9 K/uL (1.0-2.8); MCH 32.9 PG (29.0-34.0); MCHC 32.3 G/DL (30.0-36.0); MEAN PLAT.VOLUME 10.8 uM^3 (9.5-12.4); MONOCYTE (%) 8.2 % (3-12); MONOCYTE COUNT 0.4 K/uL (0-0.8); NEUTROPHIL (%) 42.6 % (45-76); RBC DIS.WIDTH-CV 23.4 % (11.8-14.6); RBC DIS.WIDTH-SD 85.5 % (39-53); WHITE BLOOD COUNT 4.6 K/uL (4.1-10.2)
[2016-11-05 13:57] LABS: PLATELET COUNT 130 K/uL (156-360); RED BLOOD COUNT 2.46 M/uL (3.80-5.20)
[2016-11-05 14:00] LABS: INTER. NORMALIZED RATIO 1.3; PROTHROMBIN TIME 13.4 (9.2-11.2)
[2016-11-05 14:02] LABS: PTT 54.9 (25-32)
[2016-11-05 14:13] LABS: ANION GAP 15 MEQ/L (2-14); CHLORIDE 101 MEQ/L (99-109); GFR ESTIMATE (CALCULATED) 6 mL/min/; IRON 73 MCG/DL (35-150); SAMPLE HEMOLYSIS CHECK 0; SAMPLE ICTERIC CHECK 0; SAMPLE LIPEMIA CHECK 0; SODIUM 141 MEQ/L (136-147); UREA NITROGEN (BUN) 68 mg/dL (9-23)
[2016-11-05 14:17] LABS: GLUCOSE 88 mg/dL (70-99)
[2016-11-05 23:01] VITALS: BP 96/55
[2016-11-06 01:20] LABS: PTT 42.9 (25-32)
[2016-11-06 11:33] LABS: INTER. NORMALIZED RATIO 1.2; PROTHROMBIN TIME 12.5 (9.2-11.2)
[2016-11-06 13:05] LABS: ANION GAP 11 MEQ/L (2-14); CHLORIDE 104 MEQ/L (99-109); GFR ESTIMATE (CALCULATED) 10 mL/min/; GLUCOSE 97 mg/dL (70-99); POTASSIUM 3.7 MEQ/L (3.7-5.4); SAMPLE HEMOLYSIS CHECK 0; SAMPLE ICTERIC CHECK 0; SAMPLE LIPEMIA CHECK 0; SODIUM 142 MEQ/L (136-147); UREA NITROGEN (BUN) 37 mg/dL (9-23)
[2016-11-06 15:03] VITALS: BP 88/42
[2016-11-06 18:54] VITALS: BP 96/58
[2016-11-06 23:17] VITALS: BP 97/48
[2016-11-07 03:02] VITALS: BP 94/58
[2016-11-07 07:01] VITALS: BP 84/48
[2016-11-07 11:54] LABS: HEMATOCRIT 25.3 % (36.0-46.0); MCH 33.5 PG (29.0-34.0); MCHC 31.2 G/DL (30.0-36.0); MEAN PLAT.VOLUME 10.9 uM^3 (9.5-12.4); PLATELET COUNT 101 K/uL (156-360); RBC DIS.WIDTH-CV 22.2 % (11.8-14.6); RBC DIS.WIDTH-SD 85.7 % (39-53); RED BLOOD COUNT 2.36 M/uL (3.80-5.20); WHITE BLOOD COUNT 4.6 K/uL (4.1-10.2)
[2016-11-07 11:59] LABS: INTER. NORMALIZED RATIO 1.2; PROTHROMBIN TIME 11.9 (9.2-11.2)
[2016-11-07 12:01] LABS: MCV 107.2 FL (83-99)
[2016-11-07 12:48] LABS: ANION GAP 13 MEQ/L (2-14); CHLORIDE 105 MEQ/L (99-109); GFR ESTIMATE (CALCULATED) 9 mL/min/; GLUCOSE 91 mg/dL (70-99); POTASSIUM 4.4 MEQ/L (3.7-5.4); SAMPLE HEMOLYSIS CHECK 0; SAMPLE ICTERIC CHECK 0; SAMPLE LIPEMIA CHECK 0; SODIUM 144 MEQ/L (136-147); UREA NITROGEN (BUN) 58 mg/dL (9-23)
[2016-11-07 15:41] VITALS: BP 86/51
[2016-11-07 18:53] VITALS: BP 84/54
[2016-11-07 22:51] VITALS: BP 86/54
[2016-11-08 03:41] VITALS: BP 91/54
[2016-11-08 07:00] VITALS: BP 120/58
[2016-11-08 07:33] VITALS: BP 107/51
[2016-11-08 09:13] LABS: EOSINOPHIL (%) 6.7 % (0-5); EOSINOPHIL COUNT 0.4 K/uL (0-0.3); HEMATOCRIT 26.9 % (36.0-46.0); IMMATURE GRANULOCYTE (%) 1.3 % (0.0-0.7); IMMATURE GRANULOCYTE COUNT 0.1 K/uL; LYMPHOCYTE COUNT 2.3 K/uL (1.0-2.8); MCH 33.6 PG (29.0-34.0); MCHC 31.6 G/DL (30.0-36.0); MCV 106.3 FL (83-99); MEAN PLAT.VOLUME 11.4 uM^3 (9.5-12.4); MONOCYTE (%) 7.2 % (3-12); MONOCYTE COUNT 0.5 K/uL (0-0.8); NEUTROPHIL (%) 48.2 % (45-76); PLATELET COUNT 106 K/uL (156-360); RBC DIS.WIDTH-CV 21.4 % (11.8-14.6); RBC DIS.WIDTH-SD 83.2 % (39-53); RED BLOOD COUNT 2.53 M/uL (3.80-5.20)
[2016-11-08 09:24] LABS: WHITE BLOOD COUNT 6.3 K/uL (4.1-10.2)
[2016-11-08 09:31] LABS: ANION GAP 17 MEQ/L (2-14); CHLORIDE 106 MEQ/L (99-109); GFR ESTIMATE (CALCULATED) 7 mL/min/; GLUCOSE 90 mg/dL (70-99); POTASSIUM 4.6 MEQ/L (3.7-5.4); SAMPLE HEMOLYSIS CHECK 0; SAMPLE ICTERIC CHECK 0; SAMPLE LIPEMIA CHECK 0; SODIUM 144 MEQ/L (136-147); UREA NITROGEN (BUN) 71 mg/dL (9-23)
[2016-11-08 10:00] LABS: INTER. NORMALIZED RATIO 1.2; PROTHROMBIN TIME 12.1 (9.2-11.2); PTT 67.7 (25-32)
[2016-11-08 12:38] LABS: POC NON-PRINT COM 1 ND
[2016-11-08 17:10] VITALS: BP 86/38
[2016-11-08 19:43] VITALS: BP 99/47
[2016-11-08 22:50] VITALS: BP 89/54
[2016-11-09 03:32] VITALS: BP 98/54
[2016-11-09 08:12] VITALS: BP 110/52
[2016-11-09 09:56] LABS: HEMATOCRIT 26.7 % (36.0-46.0); MCH 33.7 PG (29.0-34.0); MCHC 31.5 G/DL (30.0-36.0); MCV 107.2 FL (83-99); MEAN PLAT.VOLUME 11.1 uM^3 (9.5-12.4); NRBC (%) 0.4 /100 WBC (0-0); PLATELET COUNT 100 K/uL (156-360); RBC DIS.WIDTH-SD 82.1 % (39-53); RED BLOOD COUNT 2.49 M/uL (3.80-5.20); WHITE BLOOD COUNT 5.3 K/uL (4.1-10.2)
[2016-11-09 10:08] LABS: INTER. NORMALIZED RATIO 1.2; PROTHROMBIN TIME 12.4 (9.2-11.2)
[2016-11-09 10:24] LABS: ANION GAP 15 MEQ/L (2-14); CHLORIDE 102 MEQ/L (99-109); POTASSIUM 3.9 MEQ/L (3.7-5.4); SAMPLE HEMOLYSIS CHECK 0; SAMPLE ICTERIC CHECK 0; SAMPLE LIPEMIA CHECK 0; SODIUM 144 MEQ/L (136-147)
[2016-11-09 10:33] LABS: PTT 36.1 (25-32)
[2016-11-09 10:35] LABS: GFR ESTIMATE (CALCULATED) 11 mL/min/; GLUCOSE 93 mg/dL (70-99); UREA NITROGEN (BUN) 46 mg/dL (9-23)
[2016-11-09 10:46] VITALS: BP 94/51
[2016-11-09 16:53] VITALS: BP 97/50
[2016-11-09 18:37] VITALS: BP 96/52
[2016-11-09 22:31] VITALS: BP 91/52
[2016-11-10 03:22] VITALS: BP 90/54
[2016-11-10 06:49] VITALS: BP 109/55
[2016-11-10 07:17] LABS: EOSINOPHIL (%) 5.7 % (0-5); EOSINOPHIL COUNT 0.3 K/uL (0-0.3); HEMATOCRIT 27.9 % (36.0-46.0); IMMATURE GRANULOCYTE (%) 1.7 % (0.0-0.7); IMMATURE GRANULOCYTE COUNT 0.1 K/uL; INSTRUMENT ABS NEUTROPHIL CT 2.8 K/uL; LYMPHOCYTE COUNT 2.1 K/uL (1.0-2.8); MCH 33.6 PG (29.0-34.0); MCHC 31.2 G/DL (30.0-36.0); MCV 107.7 FL (83-99); MEAN PLAT.VOLUME 11.2 uM^3 (9.5-12.4); MONOCYTE (%) 7.6 % (3-12); MONOCYTE COUNT 0.4 K/uL (0-0.8); NEUTROPHIL (%) 48.2 % (45-76); NEUTROPHIL COUNT 2.8 K/uL (1.8-6.4); NRBC (%) 0.3 /100 WBC (0-0); PLATELET COUNT 101 K/uL (156-360); RBC DIS.WIDTH-SD 79.7 % (39-53); RED BLOOD COUNT 2.59 M/uL (3.80-5.20); WHITE BLOOD COUNT 5.8 K/uL (4.1-10.2)
[2016-11-10 07:35] LABS: INTER. NORMALIZED RATIO 1.4; PROTHROMBIN TIME 14.6 (9.2-11.2)
[2016-11-10 07:44] LABS: PTT 78.4 (25-32)
[2016-11-10 07:45] VITALS: BP 99/53
[2016-11-10 07:57] LABS: ANION GAP 15 MEQ/L (2-14); CHLORIDE 99 MEQ/L (99-109); GFR ESTIMATE (CALCULATED) 8 mL/min/; GLUCOSE 97 mg/dL (70-99); POTASSIUM 4.2 MEQ/L (3.7-5.4); SAMPLE HEMOLYSIS CHECK 0; SAMPLE ICTERIC CHECK 0; SAMPLE LIPEMIA CHECK 0; SODIUM 139 MEQ/L (136-147); UREA NITROGEN (BUN) 61 mg/dL (9-23)
[2016-11-10 08:22] LABS: TROP-I INTERPRETATION NEGATIVE; TROPONIN-I 0.02 ng/mL (0.0-0.30)
[2016-11-10 13:31] LABS: TROP-I INTERPRETATION NEGATIVE; TROPONIN-I < 0.01 ng/mL (0.0-0.30)
[2016-11-10 18:32] VITALS: BP 97/46
[2016-11-10 19:10] VITALS: BP 113/57
[2016-11-10 19:17] LABS: TROP-I INTERPRETATION NEGATIVE; TROPONIN-I 0.02 ng/mL (0.0-0.30)
[2016-11-10 22:49] VITALS: BP 108/53
[2016-11-11 03:02] VITALS: BP 103/50
[2016-11-11 07:44] VITALS: BP 114/52
[2016-11-11 07:47] LABS: INTER. NORMALIZED RATIO 1.3; PROTHROMBIN TIME 13.7 (9.2-11.2)
[2016-11-11 09:35] LABS: ANION GAP 15 MEQ/L (2-14); CHLORIDE 101 MEQ/L (99-109); GLUCOSE 94 mg/dL (70-99); SAMPLE HEMOLYSIS CHECK 1; SAMPLE ICTERIC CHECK 0; SAMPLE LIPEMIA CHECK 0; SODIUM 140 MEQ/L (136-147); UREA NITROGEN (BUN) 47 mg/dL (9-23)
[2016-11-11 09:37] LABS: GFR ESTIMATE (CALCULATED) 13 mL/min/; POTASSIUM 4.3 MEQ/L (3.7-5.4)
[2016-11-11 10:56] VITALS: BP 115/51
[2016-11-11 15:00] VITALS: BP 110/56
[2016-11-11 19:50] VITALS: BP 112/60
[2016-11-11 23:26] VITALS: BP 112/54
[2016-11-11 23:42] LABS: POINT-OF-CARE METER ID UU13113725
[2016-11-12 04:00] VITALS: BP 93/41
[2016-11-12 06:44] LABS: HEMATOCRIT 26.4 % (36.0-46.0); MCH 33.9 PG (29.0-34.0); MCHC 31.1 G/DL (30.0-36.0); MCV 109.1 FL (83-99); MEAN PLAT.VOLUME 11.4 uM^3 (9.5-12.4); PLATELET COUNT 106 K/uL (156-360); RBC DIS.WIDTH-SD 79.8 % (39-53); RED BLOOD COUNT 2.42 M/uL (3.80-5.20); WHITE BLOOD COUNT 5.8 K/uL (4.1-10.2)
[2016-11-12 07:10] LABS: INTER. NORMALIZED RATIO 1.3; PROTHROMBIN TIME 13.3 (9.2-11.2)
[2016-11-12 08:06] VITALS: BP 101/45
[2016-11-12 11:46] VITALS: BP 95/48
[2016-11-12 15:58] VITALS: BP 93/44
[2016-11-12] MEDS ORDERED: ELIQUIS2.5 MG PO (16:17)
[2016-11-12] MEDS ORDERED: LEVETIRACETAM500 MG PO (16:17)
[2016-11-12] MEDS ORDERED: HYDROCODON-ACE1 EAC7 PO (16:17)
[2016-11-12] MEDS ORDERED: ARANESP100 MCG/0. IV (16:17)
== END 2016-11-12 19:04 | DRG 252 ==
LOC: EME 08:06 → SDC 11:20 → EME 11:20 → 2SOUTH 16:04 → 5EAST 16:04
PROVIDERS: Anesthesiology Pain Medicine; Emergency Medicine; Family Medicine; Internal Medicine Nephrology; Thoracic Surgery (Cardiothoracic Vascular Surgery)
PROC: 057Y3ZZ Dilation of Upper Vein, Percutaneous Approach (ICD-10-PCS; principal; 2016-11-03)
PROC: 30233N1 Transfusion of Nonautologous Red Blood Cells into Peripheral Vein, Percutaneous Approach (ICD-10-PCS; principal; 2016-11-03)
PROC: 03C73ZZ Extirpation of Matter from Right Brachial Artery, Percutaneous Approach (ICD-10-PCS; principal; 2016-11-03)
PROC: 05CY3ZZ Extirpation of Matter from Upper Vein, Percutaneous Approach (ICD-10-PCS; principal; 2016-11-03)
PROC: 5A1D60Z (ICD-10-PCS; 2016-11-05)
DX: T82.868A Thrombosis due to vascular prosthetic devices, implants and grafts, initial encounter (principal); N18.6 End stage renal disease; D62 Acute posthemorrhagic anemia; N25.81 Secondary hyperparathyroidism of renal origin; Z68.42 Body mass index [BMI] 45.0-49.9, adult; T82.858A Stenosis of other vascular prosthetic devices, implants and grafts, initial encounter; Y83.2 Surgical operation with anastomosis, bypass or graft as the cause of abnormal reaction of the patient, or of later complication, without mention of misadventure at the time of the procedure; Y83.1 Surgical operation with implant of artificial internal device as the cause of abnormal reaction of the patient, or of later complication, without mention of misadventure at the time of the procedure; R07.89 Other chest pain; I95.89 Other hypotension; J44.9 Chronic obstructive pulmonary disease, unspecified; D63.1 Anemia in chronic kidney disease; G40.909 Epilepsy, unspecified, not intractable, without status epilepticus; K21.9 Gastro-esophageal reflux disease without esophagitis; G25.81 Restless legs syndrome; F32.9 Major depressive disorder, single episode, unspecified; G62.9 Polyneuropathy, unspecified; E66.01 Morbid (severe) obesity due to excess calories; Z99.2 Dependence on renal dialysis; Z85.528 Personal history of other malignant neoplasm of kidney; Z86.718 Personal history of other venous thrombosis and embolism; Z91.041 Radiographic dye allergy status; Z88.5 Allergy status to narcotic agent; Z86.711 Personal history of pulmonary embolism; Z90.5 Acquired absence of kidney
CPT/HCPCS: 80048; 80053; 80069; 82272; 82948; 83540; 84466; 84484; 85014; 85018; 85025; 85027; 85610; 85730; 86850; 86900; 86901; 86920; 93005; 94799; 99281; 99285; C1725; C1757; C1769; C1894; C2628; G0378; J0131; J0690; J0881; J1200; J1644; J1720; J1953; J2250; J3010; J7040; J7050; P9016; P9045; Q0169

== ENCOUNTER 2016-11-20 06:31 | Emergency (ER) | payer OTHER ==
[~2016-11-20] VITALS: Ht 167.6 cm; Wt 135.0 kg
[~2016-11-20 06:31] MED LIST changes: +ARANESP100 MCG/0. IV; +ARTIFICIAL TEAR15 M1 BOTH EYES; +ARTIFICIAL TEAR1510 BOTH EYES; +CORTEF10 MG PO; +CORTEF5 M1 PO; +COUMADIN1 MG PO; +COUMADIN5 MG PO; +DEPAKENE250 MG PO; +ELIQUIS2.5 MG PO; +HYDROCODON-ACE1 EAC7 PO; +LEVETIRACETAM500 MG PO
[2016-11-20 07:08] LABS: EOSINOPHIL (%) 6.1 % (0-5); EOSINOPHIL COUNT 0.3 K/uL (0-0.3); HEMATOCRIT 30.6 % (36.0-46.0); IMMATURE GRANULOCYTE (%) 0.7 % (0.0-0.7); INSTRUMENT ABS NEUTROPHIL CT 2.1 K/uL; LYMPHOCYTE COUNT 1.5 K/uL (1.0-2.8); MCH 32.7 PG (29.0-34.0); MCHC 30.1 G/DL (30.0-36.0); MCV 108.9 FL (83-99); MEAN PLAT.VOLUME 10.5 uM^3 (9.5-12.4); MONOCYTE (%) 8.9 % (3-12); MONOCYTE COUNT 0.4 K/uL (0-0.8); NEUTROPHIL (%) 48.2 % (45-76); NEUTROPHIL COUNT 2.1 K/uL (1.8-6.4); PLATELET COUNT 143 K/uL (156-360); RBC DIS.WIDTH-CV 17.3 % (11.8-14.6); RBC DIS.WIDTH-SD 69.6 % (39-53); RED BLOOD COUNT 2.81 M/uL (3.80-5.20); WHITE BLOOD COUNT 4.3 K/uL (4.1-10.2)
[2016-11-20 07:29] LABS: ANION GAP 13 MEQ/L (2-14); CHLORIDE 99 MEQ/L (99-109); POTASSIUM 4.8 MEQ/L (3.7-5.4); SAMPLE HEMOLYSIS CHECK 0; SAMPLE ICTERIC CHECK 0; SAMPLE LIPEMIA CHECK 0; SODIUM 142 MEQ/L (136-147)
[2016-11-20 07:35] LABS: GFR ESTIMATE (CALCULATED) 7 mL/min/; GLUCOSE 84 mg/dL (70-99); UREA NITROGEN (BUN) 41 mg/dL (9-23)
[2016-11-20 16:40] VITALS: BP 130/99
== END 2016-11-20 17:22 | disposition home or self-care (01) ==
LOC: EME 06:31
PROVIDERS: Emergency Medicine
DX: E87.70 Fluid overload, unspecified (principal); N18.6 End stage renal disease; Z99.2 Dependence on renal dialysis; Z86.73 Personal history of transient ischemic attack (TIA), and cerebral infarction without residual deficits; K21.9 Gastro-esophageal reflux disease without esophagitis; G40.909 Epilepsy, unspecified, not intractable, without status epilepticus; J44.9 Chronic obstructive pulmonary disease, unspecified; I95.89 Other hypotension; Z88.8 Allergy status to other drugs, medicaments and biological substances; Z88.5 Allergy status to narcotic agent; Z91.048 Other nonmedicinal substance allergy status; Z91.041 Radiographic dye allergy status; Z99.81 Dependence on supplemental oxygen
CPT/HCPCS: 71010; 80048; 85025; 93005; 94640; 99281; 99285

== ENCOUNTER 2016-12-13 10:46 | Emergency (ER) | payer OTHER ==
[~2016-12-13] VITALS: Ht 167.6 cm; Wt 126.0 kg
[2016-12-13 11:37] LABS: EOSINOPHIL (%) 4.4 % (0-5); EOSINOPHIL COUNT 0.1 K/uL (0-0.3); HEMATOCRIT 37.6 % (36.0-46.0); IMMATURE GRANULOCYTE (%) 0.6 % (0.0-0.7); INSTRUMENT ABS NEUTROPHIL CT 1.2 K/uL; LYMPHOCYTE COUNT 1.5 K/uL (1.0-2.8); MCH 33.6 PG (29.0-34.0); MCHC 31.6 G/DL (30.0-36.0); MCV 106.2 FL (83-99); MONOCYTE (%) 12.8 % (3-12); MONOCYTE COUNT 0.4 K/uL (0-0.8); NEUTROPHIL (%) 36.4 % (45-76); NEUTROPHIL COUNT 1.2 K/uL (1.8-6.4); RBC DIS.WIDTH-CV 17.1 % (11.8-14.6); RBC DIS.WIDTH-SD 67.4 % (39-53); WHITE BLOOD COUNT 3.2 K/uL (4.1-10.2)
[2016-12-13 11:42] LABS: CHLORIDE 102 mEq/L (99-109); POTASSIUM 4.5 mEq/L (3.7-5.4); SODIUM 140 mEq/L (136-147)
[2016-12-13 11:43] LABS: GLUCOSE 81 mg/dL (70-99); INTER. NORMALIZED RATIO 1.1; PROTHROMBIN TIME 11.3 (9.2-11.2)
[2016-12-13 11:45] LABS: ANION GAP 10 MEQ/L (2-14)
[2016-12-13 11:47] LABS: GFR ESTIMATE (CALCULATED) 15 mL/min/
[2016-12-13 11:48] LABS: UREA NITROGEN (BUN) 17 mg/dL (9-23)
[2016-12-13 12:12] LABS: RED BLOOD COUNT 3.54 M/uL (3.80-5.20)
[2016-12-13 13:16] LABS: MEAN PLAT.VOLUME 10.9 uM^3 (9.5-12.4); PLAT.SUFFICIENCY DECREASED
[2016-12-13 13:19] LABS: PLATELET COUNT 90 K/uL (156-360)
[2016-12-13 15:55] VITALS: BP 126/69
== END 2016-12-13 15:57 ==
LOC: EME 10:46
PROVIDERS: Emergency Medicine
DX: M79.605 Pain in left leg (principal); M79.604 Pain in right leg; N18.9 Chronic kidney disease, unspecified; R60.0 Localized edema; Z86.718 Personal history of other venous thrombosis and embolism; Z79.01 Long term (current) use of anticoagulants; Z99.2 Dependence on renal dialysis; K21.9 Gastro-esophageal reflux disease without esophagitis; Z86.73 Personal history of transient ischemic attack (TIA), and cerebral infarction without residual deficits; Z88.6 Allergy status to analgesic agent; Z91.041 Radiographic dye allergy status
CPT/HCPCS: 80048; 85025; 85610; 93970; 99281; 99285

== ENCOUNTER 2016-12-24 08:39 | Day surgery (SDC) | payer OTHER ==
[~2016-12-24] VITALS: Ht 167.6 cm; Wt 130.6 kg
[~2016-12-24 08:39] MED LIST changes: +TOPAMAX25 MG PO
[2016-12-24 10:33] LABS: METH RESISTANT S AUREUS PCR NEGATIVE (NEGATIVE)
[2016-12-24 10:34] LABS: PROBE CHECK PASS; SPECIMEN PROCESSING CONTROL PASS
== END 2016-12-24 10:08 ==
LOC: CATH 08:39
PROVIDERS: Surgery
DX: T82.858A Stenosis of other vascular prosthetic devices, implants and grafts, initial encounter (principal); Y83.2 Surgical operation with anastomosis, bypass or graft as the cause of abnormal reaction of the patient, or of later complication, without mention of misadventure at the time of the procedure; N18.6 End stage renal disease; Z99.2 Dependence on renal dialysis; M19.90 Unspecified osteoarthritis, unspecified site; J45.909 Unspecified asthma, uncomplicated; Z86.718 Personal history of other venous thrombosis and embolism; Z86.711 Personal history of pulmonary embolism; M32.9 Systemic lupus erythematosus, unspecified; R56.9 Unspecified convulsions; Z87.891 Personal history of nicotine dependence; Z88.8 Allergy status to other drugs, medicaments and biological substances; Z91.09 Other allergy status, other than to drugs and biological substances
CPT/HCPCS: 87641; C1725; C1769; C1894; J1200; J1644; J2250; J2930; J3010; S0028

== ENCOUNTER 2017-01-01 07:27 | Observation (INO) | payer OTHER ==
[~2017-01-01] VITALS: Ht 167.6 cm; Wt 116.0 kg
[2017-01-01 08:14] LABS: EOSINOPHIL (%) 2.1 % (0-5); EOSINOPHIL COUNT 0.1 K/uL (0-0.3); HEMATOCRIT 43.1 % (36.0-46.0); IMMATURE GRANULOCYTE (%) 0.2 % (0.0-0.7); INSTRUMENT ABS NEUTROPHIL CT 1.6 K/uL; LYMPHOCYTE COUNT 3.1 K/uL (1.0-2.8); MCH 34.1 PG (29.0-34.0); MCHC 31.8 G/DL (30.0-36.0); MCV 107.2 FL (83-99); MEAN PLAT.VOLUME 12.6 uM^3 (9.5-12.4); MONOCYTE (%) 7.6 % (3-12); MONOCYTE COUNT 0.4 K/uL (0-0.8); NEUTROPHIL (%) 30.2 % (45-76); NEUTROPHIL COUNT 1.6 K/uL (1.8-6.4); PLATELET COUNT 108 K/uL (156-360); RBC DIS.WIDTH-CV 16.6 % (11.8-14.6); RBC DIS.WIDTH-SD 66.9 % (39-53); RED BLOOD COUNT 4.02 M/uL (3.80-5.20); WHITE BLOOD COUNT 5.2 K/uL (4.1-10.2)
[2017-01-01 08:21] LABS: CHLORIDE 99 mEq/L (99-109); SODIUM 139 mEq/L (136-147)
[2017-01-01 08:22] LABS: INTER. NORMALIZED RATIO 1.1; PROTHROMBIN TIME 11.4 (9.2-11.2); PTT 26.8 (25-32)
[2017-01-01 08:23] LABS: GLUCOSE 96 mg/dL (70-99)
[2017-01-01 08:27] LABS: ANION GAP 13 MEQ/L (2-14); GFR ESTIMATE (CALCULATED) 5 mL/min/
[2017-01-01 08:28] LABS: UREA NITROGEN (BUN) 64 mg/dL (9-23)
[2017-01-01 08:35] LABS: TROP-I INTERPRETATION NEGATIVE; TROPONIN-I < 0.01 ng/mL (0.0-0.30)
[2017-01-01 14:53] VITALS: BP 135/86
[2017-01-01 15:20] LABS: TROP-I INTERPRETATION NEGATIVE; TROPONIN-I < 0.01 ng/mL (0.0-0.30)
[2017-01-01] MEDS ORDERED: BUSPAR10 MG PO (16:27)
[2017-01-01 21:00] VITALS: BP 106/54
[2017-01-01 22:41] LABS: TROP-I INTERPRETATION NEGATIVE
[2017-01-01 22:42] LABS: TROPONIN-I < 0.01 ng/mL (0.0-0.30)
[2017-01-02 00:12] VITALS: BP 112/64
[2017-01-02 08:39] VITALS: BP 98/51
[2017-01-02 11:54] VITALS: BP 120/57
[2017-01-02 12:00] VITALS: BP 120/61
== END 2017-01-02 14:52 ==
LOC: EME 07:27 → EDOF 13:09 → 5WEST 13:09 → EDOF 13:34 → 5WEST 14:22
PROVIDERS: Emergency Medicine; Family Medicine
DX: R07.89 Other chest pain (principal); E87.5 Hyperkalemia; J44.9 Chronic obstructive pulmonary disease, unspecified; I12.0 Hypertensive chronic kidney disease with stage 5 chronic kidney disease or end stage renal disease; N18.6 End stage renal disease; G62.9 Polyneuropathy, unspecified; K21.9 Gastro-esophageal reflux disease without esophagitis; G25.81 Restless legs syndrome; G89.29 Other chronic pain; R26.2 Difficulty in walking, not elsewhere classified; E21.3 Hyperparathyroidism, unspecified; Z68.41 Body mass index [BMI] 40.0-44.9, adult; E66.01 Morbid (severe) obesity due to excess calories; Z91.19 Patient's noncompliance with other medical treatment and regimen; Z90.5 Acquired absence of kidney; Z86.711 Personal history of pulmonary embolism; Z86.718 Personal history of other venous thrombosis and embolism
CPT/HCPCS: 70450; 71010; 80048; 80164; 84484; 85025; 85610; 85730; 93005; 99281; 99285; G0257; G0378; J2270

== ENCOUNTER 2017-02-28 06:59 | Observation (INO) | payer OTHER ==
[~2017-02-28] VITALS: Ht 167.6 cm; Wt 124.4 kg
[~2017-02-28 06:59] MED LIST changes: +BUSPAR10 MG PO
[2017-02-28 08:09] LABS: EOSINOPHIL COUNT 0.1 K/uL (0-0.3); HEMATOCRIT 26.1 % (36.0-46.0); IMMATURE GRANULOCYTE (%) 0.6 % (0.0-0.7); INSTRUMENT ABS NEUTROPHIL CT 1.8 K/uL; LYMPHOCYTE COUNT 2.2 K/uL (1.0-2.8); MCH 34.5 PG (29.0-34.0); MCV 104.8 FL (83-99); MEAN PLAT.VOLUME 11.2 uM^3 (9.5-12.4); MONOCYTE (%) 9.1 % (3-12); MONOCYTE COUNT 0.4 K/uL (0-0.8); NEUTROPHIL COUNT 1.8 K/uL (1.8-6.4); PLATELET COUNT 148 K/uL (156-360); RBC DIS.WIDTH-CV 15.3 % (11.8-14.6); RBC DIS.WIDTH-SD 58.6 % (39-53); RED BLOOD COUNT 2.49 M/uL (3.80-5.20); WHITE BLOOD COUNT 4.6 K/uL (4.1-10.2)
[2017-02-28 08:18] LABS: INTER. NORMALIZED RATIO 1.1; PROTHROMBIN TIME 10.7 (9.2-11.2); PTT 26.8 (25-32)
[2017-02-28 08:23] LABS: CHLORIDE 100 mEq/L (99-109); SODIUM 140 mEq/L (136-147)
[2017-02-28 08:25] LABS: GLUCOSE 109 mg/dL (70-99)
[2017-02-28 08:27] LABS: ANION GAP 14 MEQ/L (2-14)
[2017-02-28 08:29] LABS: GFR ESTIMATE (CALCULATED) 7 mL/min/
[2017-02-28 08:30] LABS: UREA NITROGEN (BUN) 61 mg/dL (9-23)
[2017-02-28 08:33] LABS: TROP-I INTERPRETATION NEGATIVE; TROPONIN-I < 0.01 ng/mL (0.0-0.30)
[2017-02-28 16:50] VITALS: BP 134/60
[2017-02-28 18:28] LABS: TROP-I INTERPRETATION NEGATIVE; TROPONIN-I < 0.01 ng/mL (0.0-0.30)
[2017-02-28 20:00] VITALS: BP 113/56
[2017-02-28] MEDS ORDERED: TOPAMAX50 MG PO (21:50)
[2017-02-28] MEDS ORDERED: VALPROIC ACID250 MG PO (21:54)
[2017-02-28] MEDS ORDERED: ROWEEPRA1000 MG PO ×2 (21:57→21:59)
[2017-02-28] MEDS ORDERED: APTIOM800 MG PO (22:01)
[2017-02-28] MEDS ORDERED: APTIOM200 MG PO (22:02)
[2017-02-28 23:36] LABS: TROP-I INTERPRETATION NEGATIVE; TROPONIN-I < 0.01 ng/mL (0.0-0.30)
[2017-02-28 23:58] VITALS: BP 126/57
[2017-03-01 03:58] VITALS: BP 104/46
[2017-03-01 06:22] LABS: ANION GAP 7 MEQ/L (2-14); CHLORIDE 98 MEQ/L (99-109); GLUCOSE 87 mg/dL (70-99); POTASSIUM 4.9 MEQ/L (3.7-5.4); SAMPLE HEMOLYSIS CHECK 0; SAMPLE ICTERIC CHECK 0; SAMPLE LIPEMIA CHECK 0; SODIUM 140 MEQ/L (136-147); UREA NITROGEN (BUN) 42 mg/dL (9-23)
[2017-03-01 06:31] LABS: GFR ESTIMATE (CALCULATED) 13 mL/min/
[2017-03-01 07:40] VITALS: BP 113/52
== END 2017-03-01 11:40 ==
LOC: EME 06:59 → 5WEST 11:12 → EDOF 11:12 → 5WEST 16:25
PROVIDERS: Emergency Medicine; Internal Medicine
PROC: 5A1D00Z (ICD-10-PCS; principal; 2017-02-28)
DX: R07.9 Chest pain, unspecified (principal); N18.6 End stage renal disease; Z99.2 Dependence on renal dialysis; Z85.9 Personal history of malignant neoplasm, unspecified; I95.9 Hypotension, unspecified; K21.9 Gastro-esophageal reflux disease without esophagitis; G25.81 Restless legs syndrome; F32.9 Major depressive disorder, single episode, unspecified; Z86.718 Personal history of other venous thrombosis and embolism; Z79.01 Long term (current) use of anticoagulants; J44.9 Chronic obstructive pulmonary disease, unspecified; G40.909 Epilepsy, unspecified, not intractable, without status epilepticus; E66.01 Morbid (severe) obesity due to excess calories; Z68.41 Body mass index [BMI] 40.0-44.9, adult; Z86.711 Personal history of pulmonary embolism; E21.3 Hyperparathyroidism, unspecified; D64.9 Anemia, unspecified; G89.29 Other chronic pain; G57.90 Unspecified mononeuropathy of unspecified lower limb; R26.2 Difficulty in walking, not elsewhere classified; Z88.5 Allergy status to narcotic agent; Z88.8 Allergy status to other drugs, medicaments and biological substances; Z91.09 Other allergy status, other than to drugs and biological substances; Z91.041 Radiographic dye allergy status
CPT/HCPCS: 71010; 80048; 84484; 85025; 85610; 85730; 93005; 99281; 99285; G0257; G0378; J1644; J2270

== ENCOUNTER → 2017-04-12 | Outpatient (CLI) | payer OTHER ==
[~2017-04-12] MED LIST changes: +APTIOM200 MG PO; +APTIOM800 MG PO; +ROWEEPRA1000 MG PO; +TOPAMAX50 MG PO
== END ==
LOC: RAD 04-01 11:00
DX: J98.11 Atelectasis (principal); J90 Pleural effusion, not elsewhere classified; E04.1 Nontoxic single thyroid nodule
CPT/HCPCS: 71250

== ENCOUNTER 2017-04-27 10:22 | Emergency (ER) | payer OTHER ==
[~2017-04-27] VITALS: Ht 167.6 cm; Wt 132.4 kg
[~2017-04-27 10:22] MED LIST changes: +KEPPRA500 MG PO
[2017-04-27 11:44] LABS: HEMATOCRIT 34.8 % (36.0-46.0); MCH 34.9 PG (29.0-34.0); MCHC 32.2 G/DL (30.0-36.0); MCV 108.4 FL (83-99); MEAN PLAT.VOLUME 10.8 uM^3 (9.5-12.4); PLATELET COUNT 100 K/uL (156-360); RBC DIS.WIDTH-CV 13.2 % (11.8-14.6); RBC DIS.WIDTH-SD 52.9 % (39-53); RED BLOOD COUNT 3.21 M/uL (3.80-5.20); WHITE BLOOD COUNT 8.1 K/uL (4.1-10.2)
[2017-04-27 11:52] LABS: CHLORIDE 97 mEq/L (99-109); POTASSIUM 2.9 mEq/L (3.7-5.4); SODIUM 139 mEq/L (136-147)
[2017-04-27 11:54] LABS: GLUCOSE 98 mg/dL (70-99)
[2017-04-27 11:55] LABS: ANION GAP 9 MEQ/L (2-14)
[2017-04-27 11:58] LABS: GFR ESTIMATE (CALCULATED) 13 mL/min/
[2017-04-27 11:59] LABS: UREA NITROGEN (BUN) 22 mg/dL (9-23)
[2017-04-27] MEDS ORDERED: CORTEF10 MG PO (14:32)
[2017-04-27] MEDS ORDERED: ERYTHROMYC1 APPLICAT LEFT EYE (14:57)
[2017-04-27 18:08] VITALS: BP 130/55
== END 2017-04-27 18:10 ==
LOC: EME 10:22
PROVIDERS: Emergency Medicine
DX: J02.9 Acute pharyngitis, unspecified (principal); I13.2 Hypertensive heart and chronic kidney disease with heart failure and with stage 5 chronic kidney disease, or end stage renal disease; I50.9 Heart failure, unspecified; H10.89 Other conjunctivitis; N18.6 End stage renal disease; Z99.2 Dependence on renal dialysis; Z79.01 Long term (current) use of anticoagulants
CPT/HCPCS: 71020; 80048; 85027; 87651 90; 99281; 99285

== ENCOUNTER 2017-04-30 07:06 | Inpatient (IN) | payer OTHER ==
[2017-04-30] VITALS (9 sets, daily range): BP systolic 107–190; BP diastolic 52–100
[~2017-04-30] VITALS: Ht 167.6 cm; Wt 116.3 kg
[~2017-04-30 07:06] MED LIST changes: +ERYTHROMYC1 APPLICAT LEFT EYE
[2017-04-30 08:04] LABS: EOSINOPHIL (%) 0.1 % (0-5); HEMATOCRIT 34.1 % (36.0-46.0); IMMATURE GRANULOCYTE (%) 0.7 % (0.0-0.7); IMMATURE GRANULOCYTE COUNT 0.1 K/uL; INSTRUMENT ABS NEUTROPHIL CT 6.2 K/uL; MCH 34.3 PG (29.0-34.0); MCHC 32.3 G/DL (30.0-36.0); MCV 106.2 FL (83-99); MEAN PLAT.VOLUME 10.9 uM^3 (9.5-12.4); MONOCYTE (%) 12.9 % (3-12); MONOCYTE COUNT 1.1 K/uL (0-0.8); NEUTROPHIL (%) 74.4 % (45-76); NEUTROPHIL COUNT 6.2 K/uL (1.8-6.4); PLATELET COUNT 165 K/uL (156-360); RBC DIS.WIDTH-CV 13.1 % (11.8-14.6); RBC DIS.WIDTH-SD 51.5 % (39-53); RED BLOOD COUNT 3.21 M/uL (3.80-5.20); WHITE BLOOD COUNT 8.4 K/uL (4.1-10.2)
[2017-04-30 08:09] LABS: INTER. NORMALIZED RATIO 1.4; PROTHROMBIN TIME 15.1 SEC (10.2-12.9)
[2017-04-30 08:11] LABS: PTT 31.3 SEC (25-37)
[2017-04-30 08:27] LABS: ANION GAP 15 MEQ/L (2-14); CHLORIDE 97 MEQ/L (99-109); DIRECT BILIRUBIN 0.1 mg/dL (0.0-0.3); POTASSIUM 4.2 MEQ/L (3.7-5.4); SAMPLE HEMOLYSIS CHECK 0; SAMPLE ICTERIC CHECK 0; SAMPLE LIPEMIA CHECK 0; SODIUM 139 MEQ/L (136-147); TOTAL BILIRUBIN 0.6 MG/DL (0.0-1.0)
[2017-04-30 08:33] LABS: ALKALINE PHOSPHATASE 120 IU/L (3-129); GFR ESTIMATE (CALCULATED) 5 mL/min/; GLUCOSE 129 mg/dL (70-99)
[2017-04-30 08:34] LABS: UREA NITROGEN (BUN) 63 mg/dL (9-23)
[2017-04-30 08:35] LABS: TROP-I INTERPRETATION NEGATIVE; TROPONIN-I 0.23 ng/mL (0.0-0.30)
[2017-04-30] MEDS ORDERED: XANAX0.5 MG PO (13:05)
[2017-04-30] MEDS ORDERED: APTIOM200 MG PO (13:10)
[2017-04-30] MEDS ORDERED: CITALOPRAM HBR20 MG PO (13:11)
[2017-04-30] MEDS ORDERED: KEPPRA500 MG PO (13:16)
[2017-04-30] MEDS ORDERED: SENSIPAR60 MG PO (13:20)
[2017-04-30] MEDS ORDERED: KAYEXALATE15 GM/60 M PO (13:22)
[2017-04-30] MEDS ORDERED: DEPAKOTE500 MG PO (13:24)
[2017-04-30] MEDS ORDERED: ERYTHROMYC1 APPLICAT BOTH EYES (13:26)
[2017-04-30] MEDS ORDERED: SENNOSIDES8.6 MG PO (13:32)
[2017-04-30 16:01] LABS: TROP-I INTERPRETATION NEGATIVE; TROPONIN-I 0.16 ng/mL (0.0-0.30)
[2017-04-30 21:22] LABS: POINT-OF-CARE METER ID UU14174216
[2017-04-30 21:25] LABS: TROP-I INTERPRETATION NEGATIVE; TROPONIN-I 0.13 ng/mL (0.0-0.30)
[2017-04-30 21:58] LABS: METH RESISTANT S AUREUS PCR NEGATIVE (NEGATIVE)
[2017-04-30 22:13] LABS: PROBE CHECK PASS; SPECIMEN PROCESSING CONTROL PASS
[2017-05-01] VITALS (15 sets, daily range): BP systolic 98–148; BP diastolic 41–80
[2017-05-01 05:29] LABS: HEMATOCRIT 36.7 % (36.0-46.0); MCH 33.5 PG (29.0-34.0); MCHC 31.1 G/DL (30.0-36.0); MCV 107.9 FL (83-99); MEAN PLAT.VOLUME 11.1 uM^3 (9.5-12.4); PLATELET COUNT 166 K/uL (156-360); RBC DIS.WIDTH-CV 13.3 % (11.8-14.6); RBC DIS.WIDTH-SD 53.8 % (39-53); WHITE BLOOD COUNT 8.4 K/uL (4.1-10.2)
[2017-05-01 06:40] LABS: ABS NEUTROPHIL COUNT 5.9; ANISOCYTOSIS 2+; ATYPICAL LYMPHOCYTE 1.8 %; BAND NEUTROPHILS 21.2 % (0-8.0); BURR CELLS 1+; EOSINOPHIL ABS CT 0; INSTRUMENT ABS NEUTROPHIL CT 5.7 K/uL; LYMPHOCYTES 19.5 % (15.0-45.0); MACROCYTES 2+; PLAT.SUFFICIENCY DECREASED; SEG.NEUTROPHILS 48.7 % (46.0-76.0)
[2017-05-01 07:36] LABS: POINT-OF-CARE METER ID UU14174216
[2017-05-01 11:12] LABS: POINT-OF-CARE METER ID UU14174216
[2017-05-02 03:06] VITALS: BP 131/81
[2017-05-02 07:19] VITALS: BP 118/58
[2017-05-02 09:37] LABS: HEMATOCRIT 32.5 % (36.0-46.0); MCH 35.1 PG (29.0-34.0); MCV 109.8 FL (83-99); MEAN PLAT.VOLUME 10.9 uM^3 (9.5-12.4); NRBC (%) 0.2 /100 WBC (0-0); PLATELET COUNT 184 K/uL (156-360); RBC DIS.WIDTH-CV 13.6 % (11.8-14.6); RED BLOOD COUNT 2.96 M/uL (3.80-5.20); WHITE BLOOD COUNT 11.3 K/uL (4.1-10.2)
[2017-05-02 09:55] LABS: ANION GAP 12 MEQ/L (2-14); CHLORIDE 98 MEQ/L (99-109); POTASSIUM 3.9 MEQ/L (3.7-5.4); SAMPLE HEMOLYSIS CHECK 0; SAMPLE ICTERIC CHECK 0; SAMPLE LIPEMIA CHECK 0; SODIUM 139 MEQ/L (136-147)
[2017-05-02 10:01] LABS: GFR ESTIMATE (CALCULATED) 6 mL/min/; GLUCOSE 153 mg/dL (70-99); UREA NITROGEN (BUN) 56 mg/dL (9-23)
[2017-05-02 10:08] LABS: ABS NEUTROPHIL COUNT 8.9; ANISOCYTOSIS 2+; ATYPICAL LYMPHOCYTE 1.7 %; EOSINOPHIL ABS CT 0.1; EOSINOPHILS 0.9 % (0-5.0); INSTRUMENT ABS NEUTROPHIL CT 8.7 K/uL; LYMPHOCYTES 8.7 % (15.0-45.0); MACROCYTES 2+; PLAT.SUFFICIENCY ADEQUATE; SEG.NEUTROPHILS 66.1 % (46.0-76.0)
[2017-05-02] MEDS ORDERED: LOPRESSOR25 MG PO (13:03)
[2017-05-02] MEDS ORDERED: GENTAK3.5 GM BOTH EYES (13:04)
[2017-05-02] MEDS ORDERED: RENVELA800 MG PO (13:04)
[2017-05-02 13:44] VITALS: BP 120/60
[2017-05-02 16:59] VITALS: BP 106/52
== END 2017-05-02 19:33 | DRG 308 ==
LOC: EME 07:06 → 4EAST 09:14 → EDOF 09:14 → ENRESERV 09:15 → 4EAST 16:37
PROVIDERS: Emergency Medicine; Family Medicine; Internal Medicine Nephrology
PROC: 5A1D60Z (ICD-10-PCS; principal; 2017-04-30)
DX: I48.0 Paroxysmal atrial fibrillation (principal); N18.6 End stage renal disease; I13.2 Hypertensive heart and chronic kidney disease with heart failure and with stage 5 chronic kidney disease, or end stage renal disease; I50.32 Chronic diastolic (congestive) heart failure; J44.0 Chronic obstructive pulmonary disease with (acute) lower respiratory infection; Z68.41 Body mass index [BMI] 40.0-44.9, adult; H10.89 Other conjunctivitis; G40.909 Epilepsy, unspecified, not intractable, without status epilepticus; Z86.718 Personal history of other venous thrombosis and embolism; Z86.711 Personal history of pulmonary embolism; Z99.2 Dependence on renal dialysis; E66.01 Morbid (severe) obesity due to excess calories; Z90.5 Acquired absence of kidney; I25.10 Atherosclerotic heart disease of native coronary artery without angina pectoris; J20.8 Acute bronchitis due to other specified organisms; K21.9 Gastro-esophageal reflux disease without esophagitis; G25.81 Restless legs syndrome; D63.1 Anemia in chronic kidney disease; G89.29 Other chronic pain
CPT/HCPCS: 71010; 80048; 80069; 80076; 81003; 82948; 83880; 84484; 85025; 85610; 85730; 87641; 93005; 93306; 94640; 94640 76; 94799; 99202; 99281; 99285; J1644; J7030; J7050

== ENCOUNTER 2017-05-04 10:00 | Inpatient (IN) | payer OTHER ==
[~2017-05-04] VITALS: Ht 167.6 cm; Wt 131.5 kg
[~2017-05-04 10:00] MED LIST changes: +CITALOPRAM HBR20 MG PO; +ERYTHROMYC1 APPLICAT BOTH EYES; +GENTAK3.5 GM BOTH EYES; +LOPRESSOR25 MG PO; +SENNOSIDES8.6 MG PO; +SENSIPAR60 MG PO
[2017-05-04 10:45] LABS: EOSINOPHIL (%) 1.7 % (0-5); EOSINOPHIL COUNT 0.1 K/uL (0-0.3); HEMATOCRIT 31.9 % (36.0-46.0); IMMATURE GRANULOCYTE (%) 1.9 % (0.0-0.7); IMMATURE GRANULOCYTE COUNT 0.2 K/uL; INSTRUMENT ABS NEUTROPHIL CT 5.9 K/uL; LYMPHOCYTE COUNT 1.4 K/uL (1.0-2.8); MCHC 31.7 G/DL (30.0-36.0); MCV 107.4 FL (83-99); MEAN PLAT.VOLUME 10.5 uM^3 (9.5-12.4); MONOCYTE (%) 7.4 % (3-12); MONOCYTE COUNT 0.6 K/uL (0-0.8); NEUTROPHIL COUNT 5.9 K/uL (1.8-6.4); PLATELET COUNT 177 K/uL (156-360); RBC DIS.WIDTH-CV 13.4 % (11.8-14.6); RBC DIS.WIDTH-SD 53.8 % (39-53); RED BLOOD COUNT 2.97 M/uL (3.80-5.20); WHITE BLOOD COUNT 8.2 K/uL (4.1-10.2)
[2017-05-04 11:03] LABS: INTER. NORMALIZED RATIO 1.4; PROTHROMBIN TIME 16.1 SEC (10.2-12.9)
[2017-05-04 11:07] LABS: PTT 47.1 SEC (25-37); TROP-I INTERPRETATION NEGATIVE; TROPONIN-I 0.04 ng/mL (0.0-0.30)
[2017-05-04 11:13] LABS: CHLORIDE 95 mEq/L (99-109); SODIUM 140 mEq/L (136-147)
[2017-05-04 11:16] LABS: ANION GAP 14 MEQ/L (2-14)
[2017-05-04 11:17] LABS: TOTAL BILIRUBIN 0.4 mg/dL (0.0-1.0)
[2017-05-04 11:18] LABS: ALKALINE PHOSPHATASE 113 IU/L (3-129)
[2017-05-04 11:23] LABS: GFR ESTIMATE (CALCULATED) 12 mL/min/; GLUCOSE 107 mg/dL (70-99); POTASSIUM 2.9 mEq/L (3.7-5.4)
[2017-05-04 11:40] LABS: UREA NITROGEN (BUN) 22 mg/dL (9-23)
[2017-05-04] MEDS ORDERED: APTIOM200 MG PO (15:15)
[2017-05-04] MEDS ORDERED: TOBRADEX EYE O3.5 GM BOTH EYES (15:24)
[2017-05-04 18:01] LABS: POINT-OF-CARE METER ID UU13113725
[2017-05-04 19:04] VITALS: BP 133/60
[2017-05-04 21:03] LABS: POINT-OF-CARE METER ID UU13113725
[2017-05-04 22:51] VITALS: BP 143/58
[2017-05-05 02:28] VITALS: BP 144/65
[2017-05-05 08:01] VITALS: BP 129/61
[2017-05-05 12:04] VITALS: BP 122/58
[2017-05-05 14:45] LABS: ANION GAP 11 MEQ/L (2-14); CHLORIDE 94 MEQ/L (99-109); MAGNESIUM 2.1 mg/dl (1.3-2.7); SAMPLE HEMOLYSIS CHECK 0; SAMPLE ICTERIC CHECK 0; SAMPLE LIPEMIA CHECK 0; SODIUM 137 MEQ/L (136-147)
[2017-05-05 14:48] LABS: POTASSIUM 3.7 MEQ/L (3.7-5.4)
[2017-05-05 14:53] LABS: GFR ESTIMATE (CALCULATED) 8 mL/min/; GLUCOSE 123 mg/dL (70-99)
[2017-05-05 14:55] LABS: UREA NITROGEN (BUN) 35 mg/dL (9-23)
[2017-05-05 19:21] VITALS: BP 143/66
[2017-05-05 21:18] VITALS: BP 127/87
[2017-05-05 21:33] LABS: POINT-OF-CARE METER ID UU13113725
[2017-05-05 22:38] VITALS: BP 131/85
[2017-05-06 02:38] VITALS: BP 136/72
[2017-05-06 06:10] LABS: POINT-OF-CARE METER ID UU13113725
[2017-05-06 06:18] LABS: ANION GAP 13 MEQ/L (2-14); CHLORIDE 94 MEQ/L (99-109); GFR ESTIMATE (CALCULATED) 7 mL/min/; GLUCOSE 119 mg/dL (70-99); SAMPLE HEMOLYSIS CHECK 0; SAMPLE ICTERIC CHECK 0; SAMPLE LIPEMIA CHECK 0; SODIUM 137 MEQ/L (136-147); UREA NITROGEN (BUN) 42 mg/dL (9-23); VANCOMYCIN, TROUGH 22.6 MCG/ML (10-20)
[2017-05-06 06:31] LABS: EOSINOPHIL (%) 2.9 % (0-5); EOSINOPHIL COUNT 0.2 K/uL (0-0.3); HEMATOCRIT 31.4 % (36.0-46.0); IMMATURE GRANULOCYTE COUNT 0.3 K/uL; INSTRUMENT ABS NEUTROPHIL CT 3.3 K/uL; LYMPHOCYTE COUNT 1.1 K/uL (1.0-2.8); MCH 33.6 PG (29.0-34.0); MCHC 31.5 G/DL (30.0-36.0); MCV 106.4 FL (83-99); MEAN PLAT.VOLUME 10.6 uM^3 (9.5-12.4); MONOCYTE (%) 9.8 % (3-12); MONOCYTE COUNT 0.5 K/uL (0-0.8); NEUTROPHIL (%) 61.1 % (45-76); NEUTROPHIL COUNT 3.3 K/uL (1.8-6.4); PLATELET COUNT 181 K/uL (156-360); RBC DIS.WIDTH-CV 13.2 % (11.8-14.6); RBC DIS.WIDTH-SD 50.9 % (39-53); RED BLOOD COUNT 2.95 M/uL (3.80-5.20); WHITE BLOOD COUNT 5.4 K/uL (4.1-10.2)
[2017-05-06 07:58] VITALS: BP 124/60
[2017-05-06 11:00] VITALS: BP 105/55
[2017-05-06 15:54] VITALS: BP 105/55
[2017-05-06 21:31] VITALS: BP 121/57
[2017-05-07 00:05] VITALS: BP 101/51
[2017-05-07 06:33] VITALS: BP 147/66
[2017-05-07 09:06] LABS: HEMATOCRIT 27.6 % (36.0-46.0); MCH 35.1 PG (29.0-34.0); MCV 106.6 FL (83-99); MEAN PLAT.VOLUME 10.4 uM^3 (9.5-12.4); PLATELET COUNT 182 K/uL (156-360); RBC DIS.WIDTH-CV 13.3 % (11.8-14.6); RBC DIS.WIDTH-SD 51.8 % (39-53); RED BLOOD COUNT 2.59 M/uL (3.80-5.20); WHITE BLOOD COUNT 5.5 K/uL (4.1-10.2)
[2017-05-07 09:20] LABS: ANION GAP 14 MEQ/L (2-14); CHLORIDE 96 MEQ/L (99-109); GFR ESTIMATE (CALCULATED) 6 mL/min/; GLUCOSE 145 mg/dL (70-99); POTASSIUM 4.3 MEQ/L (3.7-5.4); SAMPLE HEMOLYSIS CHECK 0; SAMPLE ICTERIC CHECK 0; SAMPLE LIPEMIA CHECK 0; SODIUM 138 MEQ/L (136-147); UREA NITROGEN (BUN) 56 mg/dL (9-23); VANCOMYCIN, TROUGH 20.8 MCG/ML (10-20)
[2017-05-07] MEDS ORDERED: DIVALPROEX SOD250 MG PO (12:14)
[2017-05-07] MEDS ORDERED: DUONEB 2.5-0.5 M3 ML AEROSOL (12:14)
[2017-05-07] MEDS ORDERED: TOPIRAMATE25 MG PO (12:15)
[2017-05-07] MEDS ORDERED: LEVETIRACETAM500 MG PO ×2 (12:16)
[2017-05-07] MEDS ORDERED: GUAIFENESIN WI120 M1 PO (12:17)
[2017-05-07] MEDS ORDERED: AUGMENTIN875 MG PO (12:18)
[2017-05-07] MEDS ORDERED: XANAX0.5 MG PO (12:19)
[2017-05-07 14:56] VITALS: BP 116/55
== END 2017-05-07 15:40 | DRG 871 ==
LOC: EME 10:00 → 5EAST 13:37 → EDOF 13:37 → ENRESERV 13:44 → 5EAST 17:25
PROVIDERS: Emergency Medicine; Family Medicine; Internal Medicine Nephrology
PROC: 5A1D00Z (ICD-10-PCS; principal; 2017-05-07)
DX: A41.9 Sepsis, unspecified organism (principal); J18.9 Pneumonia, unspecified organism; N18.6 End stage renal disease; J44.0 Chronic obstructive pulmonary disease with (acute) lower respiratory infection; Z68.42 Body mass index [BMI] 45.0-49.9, adult; I13.2 Hypertensive heart and chronic kidney disease with heart failure and with stage 5 chronic kidney disease, or end stage renal disease; D63.1 Anemia in chronic kidney disease; E66.01 Morbid (severe) obesity due to excess calories; Z99.2 Dependence on renal dialysis; E87.6 Hypokalemia; G40.909 Epilepsy, unspecified, not intractable, without status epilepticus; G89.29 Other chronic pain; I25.10 Atherosclerotic heart disease of native coronary artery without angina pectoris; I48.2 Chronic atrial fibrillation; Z99.81 Dependence on supplemental oxygen; I50.9 Heart failure, unspecified; K21.9 Gastro-esophageal reflux disease without esophagitis; Z79.01 Long term (current) use of anticoagulants; G62.9 Polyneuropathy, unspecified; F41.9 Anxiety disorder, unspecified; Z91.041 Radiographic dye allergy status; Z91.048 Other nonmedicinal substance allergy status; J32.8 Other chronic sinusitis
CPT/HCPCS: 70450; 71010; 80048; 80053; 80069; 80164; 80202; 82948; 83735; 84484; 85025; 85027; 85610; 85730; 87040; 93005; 94640; 94640 76; 94799; 95819; 99202; 99281; 99285; J1200; J1644; J2543; J3370; J7050

== ENCOUNTER 2017-05-23 12:10 | Day surgery (SDC) | payer OTHER ==
[~2017-05-23 12:10] MED LIST changes: +AUGMENTIN875 MG PO; +DIVALPROEX SOD250 MG PO; +DUONEB 2.5-0.5 M3 ML AEROSOL; +TOBRADEX EYE O3.5 GM BOTH EYES; +TOPIRAMATE25 MG PO
[2017-05-23 13:41] LABS: METH RESISTANT S AUREUS PCR NEGATIVE (NEGATIVE); PROBE CHECK PASS; SPECIMEN PROCESSING CONTROL PASS
== END 2017-05-23 14:57 ==
LOC: CATH 12:10
PROVIDERS: Surgery
DX: T82.858A Stenosis of other vascular prosthetic devices, implants and grafts, initial encounter (principal); Y83.2 Surgical operation with anastomosis, bypass or graft as the cause of abnormal reaction of the patient, or of later complication, without mention of misadventure at the time of the procedure
CPT/HCPCS: 87641; C1725; C1769; C1874; C1894; J1200; J1644; J2250; J2930; J3010; S0028

== ENCOUNTER 2017-07-30 07:06 | Observation (INO) | payer OTHER ==
[~2017-07-30] VITALS: Ht 167.6 cm; Wt 140.2 kg
[~2017-07-30 07:06] MED LIST changes: -SENSIPAR60 MG PO
[2017-07-30 07:56] LABS: PROTHROMBIN TIME 11.8 SEC (10.2-12.9)
[2017-07-30 07:59] LABS: PTT 28.8 SEC (25-37)
[2017-07-30 08:01] LABS: CREATININE 7.8 mg/dL (0.6-1.3); POTASSIUM 4.2 mEq/L (3.7-5.4)
[2017-07-30 08:11] LABS: EOSINOPHIL (%) 3.1 % (0-5); EOSINOPHIL COUNT 0.2 K/uL (0-0.3); HEMATOCRIT 33.9 % (36.0-46.0); IMMATURE GRANULOCYTE (%) 0.8 % (0.0-0.7); INSTRUMENT ABS NEUTROPHIL CT 2.3 K/uL; LYMPHOCYTE COUNT 2.1 K/uL (1.0-2.8); MCH 35.7 PG (29.0-34.0); MCHC 32.4 G/DL (30.0-36.0); MCV 110.1 FL (83-99); MEAN PLAT.VOLUME 10.8 uM^3 (9.5-12.4); MONOCYTE (%) 9.2 % (3-12); MONOCYTE COUNT 0.5 K/uL (0-0.8); NEUTROPHIL (%) 45.9 % (45-76); NEUTROPHIL COUNT 2.3 K/uL (1.8-6.4); PLATELET COUNT 112 K/uL (156-360); RBC DIS.WIDTH-SD 58.8 % (39-53); RED BLOOD COUNT 3.08 M/uL (3.80-5.20); WHITE BLOOD COUNT 5.1 K/uL (4.1-10.2)
[2017-07-30 08:17] LABS: TROP-I INTERPRETATION NEGATIVE; TROPONIN-I < 0.01 ng/mL (0.0-0.30)
[2017-07-30 08:42] LABS: AMYLASE 32 IU/L (1-118); ANION GAP 11 MEQ/L (2-14); CHLORIDE 101 MEQ/L (99-109); GFR ESTIMATE (CALCULATED) 5 mL/min/; GLUCOSE 96 mg/dL (70-99); LIPASE 18 U/L (1.0-51.0); POTASSIUM 4.3 MEQ/L (3.7-5.4); SAMPLE HEMOLYSIS CHECK 0; SAMPLE ICTERIC CHECK 0; SAMPLE LIPEMIA CHECK 0; SERUM ETHYL ALCOHOL < 10 mg/dL; SODIUM 143 MEQ/L (136-147); UREA NITROGEN (BUN) 66 mg/dL (9-23)
[2017-07-30] MEDS ORDERED: HYDROCODON-ACE1 EAC7 PO (11:51)
[2017-07-30] MEDS ORDERED: METOPROLOL TART25 MG PO (11:56)
[2017-07-30] MEDS ORDERED: TOPIRAMATE25 MG PO (11:58)
[2017-07-30] MEDS ORDERED: RENVELA800 MG PO (12:01)
[2017-07-30] MEDS ORDERED: COMPAZINE5 MG PO (12:05)
[2017-07-30] MEDS ORDERED: ACETAMINOPHEN325 M1 PO (12:08)
[2017-07-30 12:28] LABS: HDL CHOLESTEROL 39 MG/DL (Desirable>=50); LDL CHOLESTEROL 64 mg/dL (Desirable<100); NON-HDL CHOLESTEROL 82 mg/dL (Desirable<160); TOTAL CHOLESTEROL 121 mg/dL (Desirable<200); TRIGLYCERIDES 91 MG/DL (Normal: <150)
[2017-07-30 13:14] LABS: Estimated Average Glucose 100 mg/dL (70-123); HEMOGLOBIN A1c (GLYCOHEMOGLOB) 5.1 % HGB (Below 5.7)
[2017-07-30 17:20] LABS: TROP-I INTERPRETATION NEGATIVE; TROPONIN-I < 0.01 ng/mL (0.0-0.30)
[2017-07-30 18:18] VITALS: BP 97/48
[2017-07-30 20:00] VITALS: BP 97/48
[2017-07-30 20:30] LABS: TROP-I INTERPRETATION NEGATIVE; TROPONIN-I < 0.01 ng/mL (0.0-0.30)
[2017-07-31 00:43] VITALS: BP 76/37
[2017-07-31 02:52] VITALS: BP 92/43
[2017-07-31 07:20] VITALS: BP 90/53
[2017-07-31 11:11] VITALS: BP 100/58
== END 2017-07-31 17:15 ==
LOC: EME 07:06 → 5SOUTH 11:24 → EDOF 11:24 → 5SOUTH 11:24 → ENRESERV 11:29 → 5SOUTH 17:43 → ENPENDDIS 07-31 → 5SOUTH 07-31 12:42
PROVIDERS: Emergency Medicine; Family Medicine
PROC: 5A1D70Z Performance of Urinary Filtration, Intermittent, Less than 6 Hours Per Day (ICD-10-PCS; principal; 2017-07-30)
DX: R07.9 Chest pain, unspecified (principal); G40.909 Epilepsy, unspecified, not intractable, without status epilepticus; F41.9 Anxiety disorder, unspecified; E11.22 Type 2 diabetes mellitus with diabetic chronic kidney disease; I13.2 Hypertensive heart and chronic kidney disease with heart failure and with stage 5 chronic kidney disease, or end stage renal disease; N18.6 End stage renal disease; Z99.2 Dependence on renal dialysis; I50.9 Heart failure, unspecified; J44.9 Chronic obstructive pulmonary disease, unspecified; Z86.718 Personal history of other venous thrombosis and embolism; F32.9 Major depressive disorder, single episode, unspecified; D63.1 Anemia in chronic kidney disease; E66.01 Morbid (severe) obesity due to excess calories; E11.42 Type 2 diabetes mellitus with diabetic polyneuropathy; R26.2 Difficulty in walking, not elsewhere classified; E21.3 Hyperparathyroidism, unspecified; G89.29 Other chronic pain; Z85.528 Personal history of other malignant neoplasm of kidney; Z79.01 Long term (current) use of anticoagulants; Z90.5 Acquired absence of kidney; Z86.711 Personal history of pulmonary embolism; Z90.710 Acquired absence of both cervix and uterus; Z88.5 Allergy status to narcotic agent; Z91.041 Radiographic dye allergy status; Z88.8 Allergy status to other drugs, medicaments and biological substances
CPT/HCPCS: 70450; 70544; 70547; 70551; 71010; 80047; 80048; 80061; 80164; 81003; 82150; 83036; 83605; 83690; 84484; 85025; 85610; 85730; 86850; 86900; 86901; 93005; 94760; 94799; 95819; 99202; 99281; 99285; G0378; G0480; J1270; J1644; J2270; J7030; P9047

== ENCOUNTER 2017-10-03 13:43 | Day surgery (SDC) | payer OTHER ==
[~2017-10-03] VITALS: Ht 167.6 cm; Wt 127.1 kg
[~2017-10-03 13:43] MED LIST changes: +ACETAMINOPHEN325 M1 PO; +COMPAZINE5 MG PO; +ERGOCAL2500 UNIT PO; +METOPROLOL TART25 MG PO
[2017-10-03 14:24] LABS: HEMATOCRIT 32.5 % (36.0-46.0); HEMOGLOBIN 10.5 G/DL (11.9-15.5)
[2017-10-03 14:38] LABS: CHLORIDE 102 MEQ/L (99-109); POTASSIUM 5.3 MEQ/L (3.7-5.4); SODIUM 141 MEQ/L (136-147)
[2017-10-03 14:39] VITALS: BP 107/57
[2017-10-03 14:43] LABS: CREATININE 4.8 MG/DL (0.6-1.3); GFR ESTIMATE (CALCULATED) 10 mL/min/; GLUCOSE 96 mg/dL (70-99); UREA NITROGEN (BUN) 36 mg/dL (9-23)
[2017-10-03 20:20] VITALS: BP 134/64
== END 2017-10-03 20:50 | disposition home or self-care (01) ==
LOC: SDC 13:43
PROVIDERS: Surgery
DX: T82.868A Thrombosis due to vascular prosthetic devices, implants and grafts, initial encounter (principal); I12.0 Hypertensive chronic kidney disease with stage 5 chronic kidney disease or end stage renal disease; N18.6 End stage renal disease; Z99.2 Dependence on renal dialysis; J45.909 Unspecified asthma, uncomplicated; E03.9 Hypothyroidism, unspecified; G40.909 Epilepsy, unspecified, not intractable, without status epilepticus; F41.9 Anxiety disorder, unspecified; K21.9 Gastro-esophageal reflux disease without esophagitis
CPT/HCPCS: 80048; 85014; 85018; 87641; C1725; C1769; C1887; C1894; J0690; J1170; J1200; J1644; J1720; J2250; J3010

== ENCOUNTER 2017-10-18 11:51 | Inpatient (IN) | payer OTHER ==
[~2017-10-18] VITALS: Ht 167.6 cm; Wt 137.7 kg
[~2017-10-18 11:51] MED LIST changes: -ERGOCAL2500 UNIT PO; +ERGOCALCIF50000 UNIT PO
[2017-10-18 13:10] LABS: BASOPHIL (%) 0.3 % (0-1); EOSINOPHIL (%) 1.7 % (0-5); EOSINOPHIL COUNT 0.1 K/uL (0-0.3); HEMATOCRIT 34.7 % (36.0-46.0); HEMOGLOBIN 11.3 G/DL (11.9-15.5); IMMATURE GRANULOCYTE (%) 0.5 % (0.0-0.7); LYMPHOCYTE (%) 15.7 % (15-42); LYMPHOCYTE COUNT 0.9 K/uL (1.0-2.8); MCH 36.6 PG (29.0-34.0); MCHC 32.6 G/DL (30.0-36.0); MCV 112.3 FL (83-99); MONOCYTE (%) 7.9 % (3-12); MONOCYTE COUNT 0.5 K/uL (0-0.8); NEUTROPHIL (%) 73.9 % (45-76); NEUTROPHIL COUNT 4.2 K/uL (1.8-6.4); PLATELET COUNT 157 K/uL (156-360); RBC DIS.WIDTH-CV 14.8 % (11.8-14.6); RBC DIS.WIDTH-SD 60.7 % (39-53); RED BLOOD COUNT 3.09 M/uL (3.80-5.20); WHITE BLOOD COUNT 5.7 K/uL (4.1-10.2)
[2017-10-18 13:24] LABS: ALBUMIN 3.4 g/dL (3.2-4.8); CHLORIDE 97 mEq/L (99-109); POTASSIUM 5.8 mEq/L (3.7-5.4); SODIUM 136 mEq/L (136-147)
[2017-10-18 13:27] LABS: GLUCOSE 99 mg/dL (70-99); TOTAL PROTEIN 6.3 g/dL (6.4-8.3)
[2017-10-18 13:29] LABS: TOTAL BILIRUBIN 0.5 mg/dL (0.0-1.0)
[2017-10-18 13:30] LABS: ALKALINE PHOSPHATASE 123 IU/L (3-129); CREATININE 5.8 mg/dL (0.6-1.3); GFR ESTIMATE (CALCULATED) 8 mL/min/
[2017-10-18 13:31] LABS: UREA NITROGEN (BUN) 29 mg/dL (9-23)
[2017-10-18 13:32] LABS: AST (GOT) 12 IU/L (2-34); TROP-I INTERPRETATION NEGATIVE; TROPONIN-I < 0.01 ng/mL (0.0-0.30)
[2017-10-18 13:33] LABS: ALT (GPT) 7 IU/L (3-49)
[2017-10-18] MEDS ORDERED: KEPPRA500 MG PO (17:21)
[2017-10-18] MEDS ORDERED: COUGH SYRU100 MG/5 M PO (17:23)
[2017-10-18] MEDS ORDERED: XANAX0.5 MG PO (17:24)
[2017-10-18 21:10] VITALS: BP 109/69
[2017-10-18 21:20] VITALS: BP 109/69
[2017-10-18 22:00] VITALS: BP 111/95
[2017-10-18 23:00] VITALS: BP 116/57
[2017-10-19] VITALS (14 sets, daily range): BP systolic 80–143; BP diastolic 29–99
[2017-10-19 07:13] LABS: HEMATOCRIT 34.5 % (36.0-46.0); MCH 35.7 PG (29.0-34.0); MCHC 31.9 G/DL (30.0-36.0); PLATELET COUNT 151 K/uL (156-360); RBC DIS.WIDTH-CV 14.5 % (11.8-14.6); RBC DIS.WIDTH-SD 58.8 % (39-53); RED BLOOD COUNT 3.08 M/uL (3.80-5.20); WHITE BLOOD COUNT 4.4 K/uL (4.1-10.2)
[2017-10-19 07:39] LABS: CHLORIDE 101 MEQ/L (99-109); CREATININE 6.8 MG/DL (0.6-1.3); GFR ESTIMATE (CALCULATED) 6 mL/min/; GLUCOSE 150 mg/dL (70-99); POTASSIUM 6.6 MEQ/L (3.7-5.4); SODIUM 138 MEQ/L (136-147); UREA NITROGEN (BUN) 40 mg/dL (9-23)
[2017-10-20 05:40] VITALS: BP 109/60
[2017-10-20 07:35] VITALS: BP 114/59
[2017-10-20 11:14] VITALS: BP 132/54
[2017-10-20 11:47] LABS: HEPATITIS B SURFACE ANTIGEN Nonreactive
[2017-10-20 15:44] VITALS: BP 83/46
[2017-10-20 19:21] VITALS: BP 105/51
[2017-10-20 23:38] VITALS: BP 105/53
[2017-10-21 03:36] VITALS: BP 107/52
[2017-10-21 04:49] LABS: BASOPHIL (%) 0.4 % (0-1); EOSINOPHIL (%) 3.9 % (0-5); EOSINOPHIL COUNT 0.2 K/uL (0-0.3); HEMOGLOBIN 10.8 G/DL (11.9-15.5); IMMATURE GRANULOCYTE (%) 0.8 % (0.0-0.7); LYMPHOCYTE (%) 37.5 % (15-42); LYMPHOCYTE COUNT 1.8 K/uL (1.0-2.8); MCH 36.1 PG (29.0-34.0); MCHC 32.7 G/DL (30.0-36.0); MCV 110.4 FL (83-99); MONOCYTE (%) 10.7 % (3-12); MONOCYTE COUNT 0.5 K/uL (0-0.8); NEUTROPHIL (%) 46.7 % (45-76); NEUTROPHIL COUNT 2.3 K/uL (1.8-6.4); PLATELET COUNT 144 K/uL (156-360); RBC DIS.WIDTH-CV 14.8 % (11.8-14.6); RBC DIS.WIDTH-SD 58.9 % (39-53); RED BLOOD COUNT 2.99 M/uL (3.80-5.20); WHITE BLOOD COUNT 4.9 K/uL (4.1-10.2)
[2017-10-21 08:52] VITALS: BP 111/68
[2017-10-21 12:02] VITALS: BP 106/52
[2017-10-21 16:08] VITALS: BP 114/46
[2017-10-21 19:20] VITALS: BP 120/64
[2017-10-22 00:12] VITALS: BP 116/74
[2017-10-22 04:54] VITALS: BP 112/53
[2017-10-22 09:15] LABS: BASOPHIL (%) 0.6 % (0-1); EOSINOPHIL (%) 6.2 % (0-5); EOSINOPHIL COUNT 0.3 K/uL (0-0.3); HEMOGLOBIN 10.7 G/DL (11.9-15.5); IMMATURE GRANULOCYTE (%) 0.8 % (0.0-0.7); LYMPHOCYTE (%) 40.7 % (15-42); MCH 35.8 PG (29.0-34.0); MCHC 32.4 G/DL (30.0-36.0); MCV 110.4 FL (83-99); MONOCYTE (%) 11.8 % (3-12); MONOCYTE COUNT 0.6 K/uL (0-0.8); NEUTROPHIL (%) 39.9 % (45-76); NEUTROPHIL COUNT 1.9 K/uL (1.8-6.4); PLATELET COUNT 145 K/uL (156-360); RBC DIS.WIDTH-CV 14.9 % (11.8-14.6); RBC DIS.WIDTH-SD 59.1 % (39-53); RED BLOOD COUNT 2.99 M/uL (3.80-5.20); WHITE BLOOD COUNT 4.8 K/uL (4.1-10.2)
[2017-10-22 09:32] LABS: ALBUMIN 3.2 G/DL (3.2-4.8); CHLORIDE 99 MEQ/L (99-109); POTASSIUM 5.3 MEQ/L (3.7-5.4); SODIUM 139 MEQ/L (136-147)
[2017-10-22 09:41] LABS: CREATININE 7.3 MG/DL (0.6-1.3); GFR ESTIMATE (CALCULATED) 6 mL/min/; GLUCOSE 85 mg/dL (70-99); PHOSPHORUS 4.9 mg/dL (2.5-4.9); UREA NITROGEN (BUN) 52 mg/dL (9-23)
[2017-10-22] MEDS ORDERED: LEVETIRACETAM500 MG PO (13:42)
[2017-10-22] MEDS ORDERED: DIVALPROEX SOD500 MG PO (13:42)
[2017-10-22] MEDS ORDERED: XANAX0.5 MG PO (13:44)
[2017-10-22] MEDS ORDERED: KEFLEX500 MG PO (13:44)
[2017-10-22] MEDS ORDERED: HYDROCODON-ACE1 EAC7 PO (13:44)
== END 2017-10-22 16:40 | DRG 871 ==
LOC: EME 11:51 → 3EAST 18:14 → EDOF 18:14 → CANRESERV 18:19 → ENRESERV 18:19 → 4WEST 21:12 → ENRESERV 10-19 11:11 → 4WEST 10-19 11:22 → ENRESERV 10-19 12:37 → 4WEST 10-19 14:39 → 3EAST 10-19 16:14
PROVIDERS: Emergency Medicine; Family Medicine; Internal Medicine Nephrology; Surgery
PROC: 5A1D70Z Performance of Urinary Filtration, Intermittent, Less than 6 Hours Per Day (ICD-10-PCS; principal; 2017-10-19)
DX: A41.9 Sepsis, unspecified organism (principal); R65.21 Severe sepsis with septic shock; E87.5 Hyperkalemia; R09.02 Hypoxemia; N18.6 End stage renal disease; I48.91 Unspecified atrial fibrillation; R10.9 Unspecified abdominal pain; R19.7 Diarrhea, unspecified; R35.0 Frequency of micturition; J44.9 Chronic obstructive pulmonary disease, unspecified; I25.10 Atherosclerotic heart disease of native coronary artery without angina pectoris; E21.3 Hyperparathyroidism, unspecified; D63.8 Anemia in other chronic diseases classified elsewhere; F32.9 Major depressive disorder, single episode, unspecified; F41.9 Anxiety disorder, unspecified; G62.9 Polyneuropathy, unspecified; G40.219 Localization-related (focal) (partial) symptomatic epilepsy and epileptic syndromes with complex partial seizures, intractable, without status epilepticus; G89.29 Other chronic pain; E66.01 Morbid (severe) obesity due to excess calories; Z68.42 Body mass index [BMI] 45.0-49.9, adult; Z99.2 Dependence on renal dialysis; Z79.01 Long term (current) use of anticoagulants; Z79.899 Other long term (current) drug therapy; Z85.528 Personal history of other malignant neoplasm of kidney; Z86.711 Personal history of pulmonary embolism; Z86.718 Personal history of other venous thrombosis and embolism; Z90.5 Acquired absence of kidney
CPT/HCPCS: 71045; 71046; 74176; 80048; 80053; 80069; 81003; 83605; 83880; 84484; 85025; 85027; 87040; 87340; 87502; 87641; 93005; 94760; 94799; 95819; 99202; 99281; 99285; C1751; C1769; J1644; J1720; J2543; J3010; J3370; J7030; J7050

== ENCOUNTER 2017-12-01 22:21 | Inpatient (IN) | payer OTHER ==
[~2017-12-01] VITALS: Ht 167.6 cm; Wt 144.5 kg
[~2017-12-01 22:21] MED LIST changes: +COUGH SYRU100 MG/5 M PO; +DIVALPROEX SOD500 MG PO; +EVAC-U-GEN8.6 MG PO; +KEFLEX500 MG PO; +NEURONTIN400 MG PO; -SENNOSIDES8.6 MG PO
[2017-12-01 23:35] LABS: ALBUMIN 3.5 g/dL (3.2-4.8); CHLORIDE 100 mEq/L (99-109); SODIUM 135 mEq/L (136-147)
[2017-12-01 23:37] LABS: GLUCOSE 90 mg/dL (70-99); TOTAL PROTEIN 6.6 g/dL (6.4-8.3)
[2017-12-01 23:39] LABS: TOTAL BILIRUBIN 0.6 mg/dL (0.0-1.0)
[2017-12-01 23:41] LABS: ALKALINE PHOSPHATASE 156 IU/L (3-129); CREATININE 6.8 mg/dL (0.6-1.3); GFR ESTIMATE (CALCULATED) 6 mL/min/
[2017-12-01 23:42] LABS: UREA NITROGEN (BUN) 36 mg/dL (9-23)
[2017-12-01 23:43] LABS: AST (GOT) 17 IU/L (2-34)
[2017-12-01 23:44] LABS: ALT (GPT) 14 IU/L (3-49); POTASSIUM 6.9 mEq/L (3.7-5.4)
[2017-12-02 00:38] LABS: HEMATOCRIT 36.5 % (36.0-46.0); HEMOGLOBIN 12.1 G/DL (11.9-15.5); MCH 36.9 PG (29.0-34.0); MCHC 33.2 G/DL (30.0-36.0); MCV 111.3 FL (83-99); PLATELET COUNT 113 K/uL (156-360); RBC DIS.WIDTH-CV 15.9 % (11.8-14.6); RBC DIS.WIDTH-SD 64.3 % (39-53); RED BLOOD COUNT 3.28 M/uL (3.80-5.20); WHITE BLOOD COUNT 7.7 K/uL (4.1-10.2)
[2017-12-02 05:06] VITALS: BP 90/44
[2017-12-02 07:45] LABS: BASOPHIL (%) 0.6 % (0-1); EOSINOPHIL COUNT 0.1 K/uL (0-0.3); HEMATOCRIT 36.7 % (36.0-46.0); HEMOGLOBIN 11.8 G/DL (11.9-15.5); IMMATURE GRANULOCYTE (%) 0.8 % (0.0-0.7); LYMPHOCYTE (%) 20.5 % (15-42); LYMPHOCYTE COUNT 1.1 K/uL (1.0-2.8); MCH 35.9 PG (29.0-34.0); MCHC 32.2 G/DL (30.0-36.0); MCV 111.6 FL (83-99); MONOCYTE (%) 12.2 % (3-12); MONOCYTE COUNT 0.6 K/uL (0-0.8); NEUTROPHIL (%) 64.9 % (45-76); NEUTROPHIL COUNT 3.4 K/uL (1.8-6.4); NRBC (%) 0.4 /100 WBC (0-0); PLATELET COUNT 102 K/uL (156-360); RBC DIS.WIDTH-CV 15.9 % (11.8-14.6); RBC DIS.WIDTH-SD 65.5 % (39-53); RED BLOOD COUNT 3.29 M/uL (3.80-5.20); WHITE BLOOD COUNT 5.3 K/uL (4.1-10.2)
[2017-12-02 08:15] LABS: ALBUMIN 3.2 G/DL (3.2-4.8); CHLORIDE 99 MEQ/L (99-109); CREATININE 7.5 MG/DL (0.6-1.3); GFR ESTIMATE (CALCULATED) 6 mL/min/; GLUCOSE 83 mg/dL (70-99); SODIUM 136 MEQ/L (136-147); UREA NITROGEN (BUN) 42 mg/dL (9-23)
[2017-12-02 08:17] LABS: POTASSIUM 6.5 MEQ/L (3.7-5.4)
[2017-12-02 08:26] VITALS: BP 121/52
[2017-12-02] MEDS ORDERED: KEPPRA500 MG PO (09:02)
[2017-12-02] MEDS ORDERED: LEVETIRACETAM500 MG PO (09:03)
[2017-12-02 11:32] VITALS: BP 106/50
[2017-12-02 15:43] VITALS: BP 111/54
[2017-12-02] MEDS ORDERED: DIVALPROEX SOD500 MG PO (15:49)
[2017-12-02] MEDS ORDERED: DUONEB 2.5-0.5 M3 ML AEROSOL (15:50)
[2017-12-02] MEDS ORDERED: ALPRAZOLAM0.5 MG PO (16:00)
[2017-12-02] MEDS ORDERED: ERGOCALCIF50000 UNIT PO (18:29)
[2017-12-02] MEDS ORDERED: VITAMIN B-6100 MG PO (18:31)
[2017-12-02] MEDS ORDERED: BENADRYL25 MG PO (18:38)
[2017-12-02] MEDS ORDERED: PROMETHAZINE HC25 M1 PO (18:39)
[2017-12-02 20:47] VITALS: BP 108/49
[2017-12-02 22:16] VITALS: BP 117/59
[2017-12-03 00:20] VITALS: BP 166/61
[2017-12-03 00:22] VITALS: BP 109/54
[2017-12-03 04:00] VITALS: BP 125/55
[2017-12-03 07:10] VITALS: BP 146/63
[2017-12-03 07:45] LABS: BASOPHIL (%) 0.5 % (0-1); EOSINOPHIL (%) 3.2 % (0-5); EOSINOPHIL COUNT 0.1 K/uL (0-0.3); HEMATOCRIT 32.9 % (36.0-46.0); HEMOGLOBIN 10.8 G/DL (11.9-15.5); IMMATURE GRANULOCYTE (%) 0.5 % (0.0-0.7); LYMPHOCYTE (%) 30.3 % (15-42); LYMPHOCYTE COUNT 1.3 K/uL (1.0-2.8); MCH 36.2 PG (29.0-34.0); MCHC 32.8 G/DL (30.0-36.0); MCV 110.4 FL (83-99); MONOCYTE (%) 11.9 % (3-12); MONOCYTE COUNT 0.5 K/uL (0-0.8); NEUTROPHIL (%) 53.6 % (45-76); NEUTROPHIL COUNT 2.2 K/uL (1.8-6.4); PLATELET COUNT 97 K/uL (156-360); RBC DIS.WIDTH-CV 15.9 % (11.8-14.6); RBC DIS.WIDTH-SD 64.4 % (39-53); RED BLOOD COUNT 2.98 M/uL (3.80-5.20); WHITE BLOOD COUNT 4.1 K/uL (4.1-10.2)
[2017-12-03 08:11] LABS: ALBUMIN 2.9 G/DL (3.2-4.8); CHLORIDE 98 MEQ/L (99-109); CREATININE 6.7 MG/DL (0.6-1.3); GFR ESTIMATE (CALCULATED) 7 mL/min/; GLUCOSE 94 mg/dL (70-99); PHOSPHORUS 5.2 mg/dL (2.5-4.9); SODIUM 138 MEQ/L (136-147); UREA NITROGEN (BUN) 38 mg/dL (9-23)
[2017-12-03 08:12] LABS: POTASSIUM 4.8 MEQ/L (3.7-5.4)
[2017-12-03 11:25] VITALS: BP 147/66
[2017-12-03] MEDS ORDERED: OSELTAMIVIR PHO30 MG PO (12:46)
[2017-12-03] MEDS ORDERED: XANAX0.5 MG PO (12:46)
[2017-12-03] MEDS ORDERED: HYDROCODON-ACE1 EAC7 PO (12:46)
== END 2017-12-03 15:13 | DRG 865 ==
LOC: EME 22:21 → EDOF 12-02 01:00 → 4EAST 12-02 01:00 → ENRESERV 12-02 01:57 → 4EAST 12-02 04:56 → ENRESERV 12-02 16:10 → 2EAST 12-02 21:56
PROVIDERS: Emergency Medicine; Family Medicine; Internal Medicine Nephrology
PROC: 5A1D70Z Performance of Urinary Filtration, Intermittent, Less than 6 Hours Per Day (ICD-10-PCS; principal; 2017-12-02)
DX: J10.89 Influenza due to other identified influenza virus with other manifestations (principal); N18.6 End stage renal disease; Z68.43 Body mass index [BMI] 50.0-59.9, adult; I12.0 Hypertensive chronic kidney disease with stage 5 chronic kidney disease or end stage renal disease; F33.9 Major depressive disorder, recurrent, unspecified; N25.81 Secondary hyperparathyroidism of renal origin; I95.9 Hypotension, unspecified; E11.22 Type 2 diabetes mellitus with diabetic chronic kidney disease; G40.909 Epilepsy, unspecified, not intractable, without status epilepticus; K21.9 Gastro-esophageal reflux disease without esophagitis; J44.9 Chronic obstructive pulmonary disease, unspecified; D63.1 Anemia in chronic kidney disease; E66.01 Morbid (severe) obesity due to excess calories; E83.51 Hypocalcemia; E87.5 Hyperkalemia; G25.81 Restless legs syndrome; I25.10 Atherosclerotic heart disease of native coronary artery without angina pectoris; I48.91 Unspecified atrial fibrillation; G89.29 Other chronic pain; E11.40 Type 2 diabetes mellitus with diabetic neuropathy, unspecified; Z99.2 Dependence on renal dialysis; Z90.710 Acquired absence of both cervix and uterus; Z90.5 Acquired absence of kidney; Z86.718 Personal history of other venous thrombosis and embolism; B97.89 Other viral agents as the cause of diseases classified elsewhere; Z79.01 Long term (current) use of anticoagulants; Z88.6 Allergy status to analgesic agent; Z91.041 Radiographic dye allergy status; Z86.711 Personal history of pulmonary embolism; Z85.528 Personal history of other malignant neoplasm of kidney; Z88.5 Allergy status to narcotic agent; Z79.51 Long term (current) use of inhaled steroids; Z80.8 Family history of malignant neoplasm of other organs or systems; Z80.0 Family history of malignant neoplasm of digestive organs; Z81.8 Family history of other mental and behavioral disorders
CPT/HCPCS: 71045; 74176; 80053; 80069; 82948; 85025; 85027; 87040; 87502; 93005; 99202; 99281; 99285; J0610; J1815; J2543; J3370; J7040; J7050

== ENCOUNTER 2017-12-10 07:41 | Inpatient (IN) | payer OTHER ==
[~2017-12-10] VITALS: Ht 167.6 cm; Wt 133.5 kg
[~2017-12-10 07:41] MED LIST changes: +OSELTAMIVIR PHO30 MG PO; +VITAMIN B-6100 MG PO
[2017-12-10 08:17] LABS: HEMATOCRIT 32.6 % (36.0-46.0); HEMOGLOBIN 10.6 G/DL (11.9-15.5); MCH 35.8 PG (29.0-34.0); MCHC 32.5 G/DL (30.0-36.0); MCV 110.1 FL (83-99); RED BLOOD COUNT 2.96 M/uL (3.80-5.20); WHITE BLOOD COUNT 5.8 K/uL (4.1-10.2)
[2017-12-10 08:18] LABS: PLATELET COUNT 131 K/uL (156-360)
[2017-12-10 08:46] LABS: TROP-I INTERPRETATION NEGATIVE; TROPONIN-I 0.02 ng/mL (0.0-0.30)
[2017-12-10 08:50] LABS: CHLORIDE 102 MEQ/L (99-109); CREATININE 9.6 MG/DL (0.6-1.3); GFR ESTIMATE (CALCULATED) 4 mL/min/; GLUCOSE 91 mg/dL (70-99); POTASSIUM 4.1 MEQ/L (3.7-5.4); SODIUM 141 MEQ/L (136-147); UREA NITROGEN (BUN) 46 mg/dL (9-23)
[2017-12-10 09:56] LABS: ALBUMIN 3.3 G/DL (3.2-4.8); MAGNESIUM 2.2 mg/dl (1.3-2.7)
[2017-12-10 11:04] LABS: INTACT PARATHYROID HORMONE 946 pg/mL (10-69)
[2017-12-10 18:07] LABS: TROP-I INTERPRETATION NEGATIVE; TROPONIN-I 0.02 ng/mL (0.0-0.30)
[2017-12-10 18:08] VITALS: BP 100/68
[2017-12-10 19:30] VITALS: BP 95/55
[2017-12-10 22:37] LABS: TROP-I INTERPRETATION NEGATIVE; TROPONIN-I < 0.01 ng/mL (0.0-0.30)
[2017-12-11 00:06] VITALS: BP 100/49
[2017-12-11 03:29] LABS: BASOPHIL (%) 0.7 % (0-1); EOSINOPHIL (%) 3.6 % (0-5); EOSINOPHIL COUNT 0.2 K/uL (0-0.3); HEMATOCRIT 35.1 % (36.0-46.0); HEMOGLOBIN 11.5 G/DL (11.9-15.5); IMMATURE GRANULOCYTE (%) 0.9 % (0.0-0.7); LYMPHOCYTE (%) 42.3 % (15-42); LYMPHOCYTE COUNT 2.3 K/uL (1.0-2.8); MCH 35.9 PG (29.0-34.0); MCHC 32.8 G/DL (30.0-36.0); MCV 109.7 FL (83-99); MONOCYTE (%) 8.9 % (3-12); MONOCYTE COUNT 0.5 K/uL (0-0.8); NEUTROPHIL (%) 43.6 % (45-76); NEUTROPHIL COUNT 2.4 K/uL (1.8-6.4); PLATELET COUNT 142 K/uL (156-360); RBC DIS.WIDTH-CV 14.7 % (11.8-14.6); WHITE BLOOD COUNT 5.5 K/uL (4.1-10.2)
[2017-12-11 03:38] LABS: ALBUMIN 3.4 g/dL (3.2-4.8); CHLORIDE 102 mEq/L (99-109); POTASSIUM 4.4 mEq/L (3.7-5.4); SODIUM 142 mEq/L (136-147)
[2017-12-11 03:40] LABS: GLUCOSE 101 mg/dL (70-99)
[2017-12-11 03:41] LABS: TOTAL PROTEIN 6.2 g/dL (6.4-8.3)
[2017-12-11 03:42] LABS: TOTAL BILIRUBIN 0.4 mg/dL (0.0-1.0)
[2017-12-11 03:44] LABS: ALKALINE PHOSPHATASE 123 IU/L (3-129); GFR ESTIMATE (CALCULATED) 8 mL/min/
[2017-12-11 03:45] LABS: CREATININE 5.7 mg/dL (0.6-1.3); UREA NITROGEN (BUN) 24 mg/dL (9-23)
[2017-12-11 03:46] LABS: AST (GOT) 17 IU/L (2-34)
[2017-12-11 03:47] LABS: ALT (GPT) 12 IU/L (3-49)
[2017-12-11 05:35] LABS: VALPROIC ACID (DEPAKOTE) 50.1 MCG/ML (50-100)
[2017-12-11 07:40] VITALS: BP 80/40
[2017-12-11 12:26] VITALS: BP 79/37
[2017-12-11 16:15] VITALS: BP 84/43
[2017-12-11 20:50] VITALS: BP 96/51
[2017-12-11 22:16] LABS: HEMATOCRIT 34.6 % (36.0-46.0); HEMOGLOBIN 11.2 G/DL (11.9-15.5); MCH 35.7 PG (29.0-34.0); MCHC 32.4 G/DL (30.0-36.0); MCV 110.2 FL (83-99); PLATELET COUNT 146 K/uL (156-360); RBC DIS.WIDTH-CV 14.6 % (11.8-14.6); RBC DIS.WIDTH-SD 59.4 % (39-53); RED BLOOD COUNT 3.14 M/uL (3.80-5.20); WHITE BLOOD COUNT 4.9 K/uL (4.1-10.2)
[2017-12-11 22:40] LABS: TROP-I INTERPRETATION NEGATIVE; TROPONIN-I 0.01 ng/mL (0.0-0.30)
[2017-12-11 23:13] LABS: ALBUMIN 3.4 G/DL (3.2-4.8); ALKALINE PHOSPHATASE 102 IU/L (3-129); ALT (GPT) 9 IU/L (3-49); AST (GOT) 18 IU/L (2-34); CHLORIDE 97 MEQ/L (99-109); DIRECT BILIRUBIN 0.1 mg/dL (0.0-0.3); GFR ESTIMATE (CALCULATED) 6 mL/min/; GLUCOSE 109 mg/dL (70-99); POTASSIUM 4.4 MEQ/L (3.7-5.4); SODIUM 137 MEQ/L (136-147); TOTAL BILIRUBIN 0.3 MG/DL (0.0-1.0); TOTAL PROTEIN 6.1 G/DL (6.4-8.3)
[2017-12-11 23:14] LABS: UREA NITROGEN (BUN) 40 mg/dL (9-23)
[2017-12-11 23:53] VITALS: BP 116/57
[2017-12-12 03:32] VITALS: BP 79/42
[2017-12-12 04:12] VITALS: BP 94/49
[2017-12-12 07:29] VITALS: BP 93/58
[2017-12-12 08:25] LABS: BASOPHIL (%) 0.5 % (0-1); EOSINOPHIL COUNT 0.2 K/uL (0-0.3); HEMATOCRIT 33.5 % (36.0-46.0); HEMOGLOBIN 10.6 G/DL (11.9-15.5); IMMATURE GRANULOCYTE (%) 1.1 % (0.0-0.7); LYMPHOCYTE (%) 47.2 % (15-42); LYMPHOCYTE COUNT 2.6 K/uL (1.0-2.8); MCHC 31.6 G/DL (30.0-36.0); MCV 110.6 FL (83-99); MONOCYTE (%) 9.7 % (3-12); MONOCYTE COUNT 0.5 K/uL (0-0.8); NEUTROPHIL (%) 37.5 % (45-76); NEUTROPHIL COUNT 2.1 K/uL (1.8-6.4); PLATELET COUNT 153 K/uL (156-360); RBC DIS.WIDTH-CV 14.8 % (11.8-14.6); RBC DIS.WIDTH-SD 60.5 % (39-53); RED BLOOD COUNT 3.03 M/uL (3.80-5.20); WHITE BLOOD COUNT 5.5 K/uL (4.1-10.2)
[2017-12-12 08:47] LABS: ALBUMIN 3.1 G/DL (3.2-4.8); CHLORIDE 102 MEQ/L (99-109); CREATININE 7.5 MG/DL (0.6-1.3); GFR ESTIMATE (CALCULATED) 6 mL/min/; GLUCOSE 128 mg/dL (70-99); PHOSPHORUS 4.1 mg/dL (2.5-4.9); POTASSIUM 4.3 MEQ/L (3.7-5.4); SODIUM 141 MEQ/L (136-147); UREA NITROGEN (BUN) 47 mg/dL (9-23)
[2017-12-12] MEDS ORDERED: DIVALPROEX SOD500 MG PO (14:04)
[2017-12-12] MEDS ORDERED: XANAX0.5 MG PO (14:07)
[2017-12-12] MEDS ORDERED: HYDROCODON-ACE1 EAC7 PO (14:07)
== END 2017-12-12 16:05 | DRG 302 ==
LOC: EME 07:41 → EDOF 09:40 → ENRESERV 09:42 → EDOF 09:52 → ENRESERV 10:58 → EDOF 16:32 → 4SOUTH 17:45
PROVIDERS: Family Medicine; Hospitalist; Internal Medicine; Internal Medicine Nephrology; Physician Assistant
PROC: 5A1D70Z Performance of Urinary Filtration, Intermittent, Less than 6 Hours Per Day (ICD-10-PCS; principal; 2017-12-10)
DX: I25.10 Atherosclerotic heart disease of native coronary artery without angina pectoris (principal); E66.01 Morbid (severe) obesity due to excess calories; Z68.42 Body mass index [BMI] 45.0-49.9, adult; N18.6 End stage renal disease; N25.81 Secondary hyperparathyroidism of renal origin; I50.9 Heart failure, unspecified; I95.9 Hypotension, unspecified; E83.51 Hypocalcemia; I48.2 Chronic atrial fibrillation; I48.0 Paroxysmal atrial fibrillation; G40.909 Epilepsy, unspecified, not intractable, without status epilepticus; K21.9 Gastro-esophageal reflux disease without esophagitis; G89.29 Other chronic pain; D63.1 Anemia in chronic kidney disease; E03.9 Hypothyroidism, unspecified; J44.9 Chronic obstructive pulmonary disease, unspecified; G56.00 Carpal tunnel syndrome, unspecified upper limb; G25.81 Restless legs syndrome; F41.8 Other specified anxiety disorders; Z86.711 Personal history of pulmonary embolism; Z74.01 Bed confinement status; Z85.528 Personal history of other malignant neoplasm of kidney; Z90.710 Acquired absence of both cervix and uterus; Z99.2 Dependence on renal dialysis; Z99.3 Dependence on wheelchair; Z79.01 Long term (current) use of anticoagulants; Z90.5 Acquired absence of kidney; Z80.0 Family history of malignant neoplasm of digestive organs; Z80.8 Family history of malignant neoplasm of other organs or systems; Z86.718 Personal history of other venous thrombosis and embolism
CPT/HCPCS: 70450; 71045; 80048; 80053; 80069; 80164; 82040; 82140; 82248; 82306; 82330; 82948; 83605; 83735; 83970; 84484; 85025; 85025 91; 85027; 93005; 94799; 99281; 99285; G0378; J0610; J1200; J1270; J1644; J1953; J2060; J7030; J7050

== ENCOUNTER 2017-12-26 14:50 | Day surgery (SDC) | payer OTHER | END 2017-12-26 20:07 | LOC: CATH 14:50 | DX: T82.868A Thrombosis due to vascular prosthetic devices, implants and grafts, initial encounter (principal); Y83.2 Surgical operation with anastomosis, bypass or graft as the cause of abnormal reaction of the patient, or of later complication, without mention of misadventure at the time of the procedure; I12.0 Hypertensive chronic kidney disease with stage 5 chronic kidney disease or end stage renal disease; N18.6 End stage renal disease; Z99.2 Dependence on renal dialysis | CPT/HCPCS: C1725; C1757; C1769; C1894; C2628; J0690; J1200; J1644; J2250; J2930; J3010; S0020; S0028 ==

== ENCOUNTER 2017-12-30 02:48 | Emergency (ER) | payer OTHER ==
[~2017-12-30] VITALS: Ht 167.6 cm; Wt 140.8 kg
[2017-12-30 03:37] LABS: HEMATOCRIT 31.1 % (36.0-46.0); HEMOGLOBIN 10.2 G/DL (11.9-15.5); MCH 36.3 PG (29.0-34.0); MCHC 32.8 G/DL (30.0-36.0); MCV 110.7 FL (83-99); RBC DIS.WIDTH-CV 15.9 % (11.8-14.6); RBC DIS.WIDTH-SD 61.5 % (39-53); RED BLOOD COUNT 2.81 M/uL (3.80-5.20); WHITE BLOOD COUNT 5.9 K/uL (4.1-10.2)
[2017-12-30 03:44] LABS: CHLORIDE 99 mEq/L (99-109); SODIUM 140 mEq/L (136-147)
[2017-12-30 03:45] LABS: GLUCOSE 83 mg/dL (70-99)
[2017-12-30 03:49] LABS: CREATININE 7.3 mg/dL (0.6-1.3); GFR ESTIMATE (CALCULATED) 6 mL/min/
[2017-12-30 03:50] LABS: UREA NITROGEN (BUN) 60 mg/dL (9-23)
[2017-12-30 03:58] LABS: TROP-I INTERPRETATION NEGATIVE; TROPONIN-I 0.01 ng/mL (0.0-0.30)
[2017-12-30 05:03] LABS: PLAT.SUFFICIENCY DECREASED
[2017-12-30 05:08] LABS: PLATELET COUNT 93 K/uL (156-360)
[2017-12-30 07:45] VITALS: BP 105/78
[2017-12-31] MEDS ORDERED: NEPHRO-VITE,1 TABLET PO (11:10)
[2017-12-31] MEDS ORDERED: LORTAB 5-325 M1 EACH PO (11:13)
[2017-12-31] MEDS ORDERED: DEPAKOTE500 MG PO (11:16)
== END 2017-12-30 08:44 ==
LOC: EME → EDBD 02:48 → EME 02:48
PROVIDERS: Emergency Medicine
DX: R07.9 Chest pain, unspecified (principal); E87.5 Hyperkalemia; N18.6 End stage renal disease; Z99.2 Dependence on renal dialysis; R06.00 Dyspnea, unspecified; J45.909 Unspecified asthma, uncomplicated; Z79.01 Long term (current) use of anticoagulants
CPT/HCPCS: 71046; 80048; 84484; 85027; 93005; 99281; 99285

== ENCOUNTER 2017-12-31 07:57 | Observation (INO) | payer OTHER ==
[~2017-12-31] VITALS: Ht 180.3 cm; Wt 134.4 kg
[2017-12-31 08:26] LABS: HEMATOCRIT 29.7 % (36.0-46.0); HEMOGLOBIN 9.5 G/DL (11.9-15.5); MCH 35.4 PG (29.0-34.0); MCV 110.8 FL (83-99); PLATELET COUNT 89 K/uL (156-360); RBC DIS.WIDTH-SD 61.6 % (39-53); RED BLOOD COUNT 2.68 M/uL (3.80-5.20); WHITE BLOOD COUNT 5.4 K/uL (4.1-10.2)
[2017-12-31 08:39] LABS: CHLORIDE 102 mEq/L (99-109); SODIUM 142 mEq/L (136-147)
[2017-12-31 08:40] LABS: GLUCOSE 79 mg/dL (70-99)
[2017-12-31 08:43] LABS: POTASSIUM 7.2 mEq/L (3.7-5.4)
[2017-12-31 08:44] LABS: CREATININE 8.6 mg/dL (0.6-1.3); GFR ESTIMATE (CALCULATED) 5 mL/min/
[2017-12-31 08:45] LABS: UREA NITROGEN (BUN) 77 mg/dL (9-23)
[2017-12-31 08:46] LABS: TROP-I INTERPRETATION NEGATIVE; TROPONIN-I < 0.01 ng/mL (0.0-0.30)
[2017-12-31 09:02] LABS: ABS NEUTROPHIL COUNT 2.3; ANISOCYTOSIS 2+; BAND NEUTROPHILS 1.8 % (0-8.0); EOSINOPHIL ABS CT 0.3; EOSINOPHILS 5.3 % (0-5.0); LYMPHOCYTES 35.1 % (15.0-45.0); MACROCYTES 3+; MYELOCYTES 2.6 %; PLAT.SUFFICIENCY DECREASED; SEG.NEUTROPHILS 41.2 % (46.0-76.0)
[2017-12-31] MEDS ORDERED: NEPHRO-VITE,1 TABLET PO (11:10)
[2017-12-31] MEDS ORDERED: LORTAB 5-325 M1 EACH PO (11:13)
[2017-12-31] MEDS ORDERED: DEPAKOTE500 MG PO (11:16)
[2017-12-31 17:30] VITALS: BP 108/57
[2017-12-31 17:59] LABS: TROP-I INTERPRETATION NEGATIVE; TROPONIN-I < 0.01 ng/mL (0.0-0.30)
[2017-12-31 19:45] VITALS: BP 96/64
[2017-12-31 22:22] LABS: TROP-I INTERPRETATION NEGATIVE; TROPONIN-I < 0.01 ng/mL (0.0-0.30)
[2017-12-31 23:26] VITALS: BP 90/43
[2017-12-31 23:35] VITALS: BP 131/70
[2018-01-01 03:43] VITALS: BP 103/59
[2018-01-01 05:30] LABS: CHLORIDE 105 MEQ/L (99-109); CREATININE 5.1 MG/DL (0.6-1.3); GFR ESTIMATE (CALCULATED) 9 mL/min/; GLUCOSE 83 mg/dL (70-99); SODIUM 144 MEQ/L (136-147); UREA NITROGEN (BUN) 36 mg/dL (9-23)
[2018-01-01 05:31] LABS: POTASSIUM 5.2 MEQ/L (3.7-5.4)
[2018-01-01 09:00] VITALS: BP 93/44
[2018-01-01 11:26] VITALS: BP 98/42
[2018-01-01] MEDS ORDERED: GABAPENTIN400 MG PO (12:16)
== END 2018-01-01 15:16 ==
LOC: EME 07:57 → 4SOUTH 11:08 → EDOF 11:08 → ENRESERV 11:11 → 4SOUTH 17:08
PROVIDERS: Emergency Medicine; Family Medicine
PROC: 5A1D70Z Performance of Urinary Filtration, Intermittent, Less than 6 Hours Per Day (ICD-10-PCS; principal; 2017-12-31)
DX: R07.89 Other chest pain (principal); E87.5 Hyperkalemia; N18.6 End stage renal disease; Z99.2 Dependence on renal dialysis; Z91.15 Patient's noncompliance with renal dialysis; D63.1 Anemia in chronic kidney disease; E83.51 Hypocalcemia; E66.01 Morbid (severe) obesity due to excess calories; Z90.5 Acquired absence of kidney; Z90.710 Acquired absence of both cervix and uterus; K21.9 Gastro-esophageal reflux disease without esophagitis; G25.81 Restless legs syndrome; Z86.718 Personal history of other venous thrombosis and embolism; Z86.711 Personal history of pulmonary embolism; G40.909 Epilepsy, unspecified, not intractable, without status epilepticus; F32.9 Major depressive disorder, single episode, unspecified; N25.81 Secondary hyperparathyroidism of renal origin; G62.9 Polyneuropathy, unspecified; I48.91 Unspecified atrial fibrillation; F41.9 Anxiety disorder, unspecified; Z85.528 Personal history of other malignant neoplasm of kidney; Z66 Do not resuscitate; Z88.5 Allergy status to narcotic agent; Z91.048 Other nonmedicinal substance allergy status; Z88.8 Allergy status to other drugs, medicaments and biological substances
CPT/HCPCS: 70450; 71045; 80048; 84484; 85025; 93005; 94799; 99281; 99285; G0257; G0378; J1644; Q0169

== ENCOUNTER 2018-01-02 14:30 | Emergency (ER) | payer OTHER ==
[~2018-01-02] VITALS: Ht 167.6 cm; Wt 144.7 kg
[~2018-01-02 14:30] MED LIST changes: +GABAPENTIN400 MG PO; +LORTAB 5-325 M1 EACH PO
[2018-01-02 15:16] LABS: HEMATOCRIT 31.5 % (36.0-46.0); HEMOGLOBIN 10.2 G/DL (11.9-15.5); MCH 35.8 PG (29.0-34.0); MCHC 32.4 G/DL (30.0-36.0); MCV 110.5 FL (83-99); PLATELET COUNT 90 K/uL (156-360); RBC DIS.WIDTH-CV 16.1 % (11.8-14.6); RBC DIS.WIDTH-SD 63.9 % (39-53); RED BLOOD COUNT 2.85 M/uL (3.80-5.20); WHITE BLOOD COUNT 4.8 K/uL (4.1-10.2)
[2018-01-02 15:31] LABS: CHLORIDE 99 mEq/L (99-109); SODIUM 139 mEq/L (136-147)
[2018-01-02 15:37] LABS: UREA NITROGEN (BUN) 20 mg/dL (9-23)
[2018-01-02 15:38] LABS: TROP-I INTERPRETATION NEGATIVE; TROPONIN-I < 0.01 ng/mL (0.0-0.30)
[2018-01-02 15:44] LABS: GFR ESTIMATE (CALCULATED) 12 mL/min/; GLUCOSE 107 mg/dL (70-99); POTASSIUM 3.9 mEq/L (3.7-5.4)
[2018-01-02 17:17] LABS: TROP-I INTERPRETATION NEGATIVE; TROPONIN-I < 0.01 ng/mL (0.0-0.30)
[2018-01-02 20:27] VITALS: BP 110/51
== END 2018-01-02 20:31 ==
LOC: EME 14:30
PROVIDERS: Emergency Medicine
DX: R07.9 Chest pain, unspecified (principal); N18.9 Chronic kidney disease, unspecified; K21.9 Gastro-esophageal reflux disease without esophagitis; I50.9 Heart failure, unspecified; Z99.2 Dependence on renal dialysis; I25.10 Atherosclerotic heart disease of native coronary artery without angina pectoris; M32.9 Systemic lupus erythematosus, unspecified; F41.9 Anxiety disorder, unspecified; F32.9 Major depressive disorder, single episode, unspecified; J45.909 Unspecified asthma, uncomplicated; G40.909 Epilepsy, unspecified, not intractable, without status epilepticus; Z88.5 Allergy status to narcotic agent; Z88.6 Allergy status to analgesic agent
CPT/HCPCS: 71045; 80048; 84484; 85027; 93005; 99281; 99285

== ENCOUNTER 2018-01-11 08:38 | Emergency (ER) | payer OTHER ==
[~2018-01-11] VITALS: Ht 167.6 cm; Wt 140.1 kg
[2018-01-11 10:07] LABS: HEMATOCRIT 29.4 % (36.0-46.0); HEMOGLOBIN 9.7 G/DL (11.9-15.5); MCH 36.7 PG (29.0-34.0); MCV 111.4 FL (83-99); RBC DIS.WIDTH-CV 16.9 % (11.8-14.6); RBC DIS.WIDTH-SD 66.4 % (39-53); RED BLOOD COUNT 2.64 M/uL (3.80-5.20); WHITE BLOOD COUNT 5.1 K/uL (4.1-10.2)
[2018-01-11 10:10] LABS: PLATELET COUNT 136 K/uL (156-360)
[2018-01-11 10:17] LABS: ALBUMIN 3.3 g/dL (3.2-4.8); CHLORIDE 97 mEq/L (99-109); POTASSIUM 5.9 mEq/L (3.7-5.4); SODIUM 138 mEq/L (136-147)
[2018-01-11 10:19] LABS: GLUCOSE 70 mg/dL (70-99)
[2018-01-11 10:20] LABS: TOTAL PROTEIN 6.3 g/dL (6.4-8.3)
[2018-01-11 10:21] LABS: TOTAL BILIRUBIN 0.4 mg/dL (0.0-1.0)
[2018-01-11 10:23] LABS: ALKALINE PHOSPHATASE 132 IU/L (3-129); CREATININE 8.2 mg/dL (0.6-1.3); GFR ESTIMATE (CALCULATED) 5 mL/min/
[2018-01-11 10:24] LABS: UREA NITROGEN (BUN) 91 mg/dL (9-23)
[2018-01-11 10:25] LABS: AST (GOT) 13 IU/L (2-34)
[2018-01-11 10:26] LABS: ALT (GPT) 5 IU/L (3-49)
[2018-01-11 10:28] LABS: TROP-I INTERPRETATION NEGATIVE; TROPONIN-I 0.02 ng/mL (0.0-0.30)
[2018-01-11] MEDS ORDERED: XANAX0.5 MG PO (13:40)
[2018-01-11] MEDS ORDERED: CELEXA20 MG PO (13:41)
[2018-01-11] MEDS ORDERED: ERGOCALCIF50000 UNIT PO (13:44)
[2018-01-11] MEDS ORDERED: FOLIC ACID1 MG PO (13:45)
[2018-01-11] MEDS ORDERED: NEURONTIN400 MG PO (13:46)
[2018-01-11] MEDS ORDERED: CORTEF10 MG PO (13:48)
[2018-01-11] MEDS ORDERED: PYRIDOXINE HCL100 MG PO (13:51)
[2018-01-11] MEDS ORDERED: SENNA8.6 MG PO (13:53)
[2018-01-11] MEDS ORDERED: ELIQUIS5 MG PO (13:54)
[2018-01-11] MEDS ORDERED: APTIOM200 MG PO (13:56)
[2018-01-11] MEDS ORDERED: NORCO 5/3251 TABLET PO (13:59)
[2018-01-11 14:01] LABS: TROP-I INTERPRETATION NEGATIVE; TROPONIN-I 0.01 ng/mL (0.0-0.30)
[2018-01-11] MEDS ORDERED: KEPPRA500 MG PO (14:02)
[2018-01-11] MEDS ORDERED: LOPRESSOR25 MG PO (14:07)
[2018-01-11] MEDS ORDERED: MIRAPEX0.25 MG PO (14:08)
[2018-01-11] MEDS ORDERED: BUSPAR10 MG PO (14:17)
[2018-01-11] MEDS ORDERED: DEPAKOTE500 MG PO (14:18)
[2018-01-11] MEDS ORDERED: RENVELA800 MG PO (14:22)
[2018-01-11] MEDS ORDERED: TYLENOL325 M2 PO (14:23)
[2018-01-11] MEDS ORDERED: BENADRYL ALLERG25 MG PO (14:25)
[2018-01-11] MEDS ORDERED: GERI-TUSSI100 MG/5 M PO (14:26)
[2018-01-11] MEDS ORDERED: DUONEB 2.5-0.5 M3 ML AEROSOL (14:26)
[2018-01-11] MEDS ORDERED: PROMETHAZINE HC25 M1 PO (14:27)
[2018-01-11 23:07] VITALS: BP 81/51
== END 2018-01-11 23:08 ==
LOC: EME → EDBD 08:38 → EME 08:38
PROVIDERS: Nurse Practitioner Family
PROC: 5A1D70Z Performance of Urinary Filtration, Intermittent, Less than 6 Hours Per Day (ICD-10-PCS; principal; 2018-01-11)
DX: R07.9 Chest pain, unspecified (principal); I13.2 Hypertensive heart and chronic kidney disease with heart failure and with stage 5 chronic kidney disease, or end stage renal disease; I50.9 Heart failure, unspecified; N18.6 End stage renal disease; Z99.2 Dependence on renal dialysis; E87.5 Hyperkalemia; D63.1 Anemia in chronic kidney disease; F32.9 Major depressive disorder, single episode, unspecified; F41.9 Anxiety disorder, unspecified; K21.9 Gastro-esophageal reflux disease without esophagitis; M32.9 Systemic lupus erythematosus, unspecified; G25.81 Restless legs syndrome; I25.10 Atherosclerotic heart disease of native coronary artery without angina pectoris; J45.909 Unspecified asthma, uncomplicated; E66.01 Morbid (severe) obesity due to excess calories; Z68.42 Body mass index [BMI] 45.0-49.9, adult; G40.909 Epilepsy, unspecified, not intractable, without status epilepticus; Z88.5 Allergy status to narcotic agent; Z90.5 Acquired absence of kidney; I48.91 Unspecified atrial fibrillation; H54.8 Legal blindness, as defined in USA; Z88.6 Allergy status to analgesic agent; Z91.15 Patient's noncompliance with renal dialysis; Z86.718 Personal history of other venous thrombosis and embolism; Z86.711 Personal history of pulmonary embolism; E21.3 Hyperparathyroidism, unspecified
CPT/HCPCS: 71046; 80053; 84484; 85027; 93005; 99281; 99285

== ENCOUNTER 2018-02-06 13:30 | Emergency (ER) | payer OTHER ==
[~2018-02-06] VITALS: Ht 167.6 cm; Wt 133.5 kg
[~2018-02-06 13:30] MED LIST changes: +BENADRYL ALLERG25 MG PO; +CELEXA20 MG PO; +FOLIC ACID1 MG PO; +NORCO 5/3251 TABLET PO; +PYRIDOXINE HCL100 MG PO; +TYLENOL325 M2 PO
[2018-02-06 14:16] LABS: HEMATOCRIT 35.6 % (36.0-46.0); MCH 37.1 PG (29.0-34.0); MCHC 33.1 G/DL (30.0-36.0); MCV 111.9 FL (83-99); PLATELET COUNT 133 K/uL (156-360); RBC DIS.WIDTH-SD 65.6 % (39-53); WHITE BLOOD COUNT 4.3 K/uL (4.1-10.2)
[2018-02-06 14:17] LABS: HEMOGLOBIN 11.8 G/DL (11.9-15.5); RED BLOOD COUNT 3.18 M/uL (3.80-5.20)
[2018-02-06 14:26] LABS: ALBUMIN 3.8 g/dL (3.2-4.8); CHLORIDE 94 mEq/L (99-109); POTASSIUM 4.1 mEq/L (3.7-5.4); SODIUM 138 mEq/L (136-147)
[2018-02-06 14:28] LABS: GLUCOSE 96 mg/dL (70-99)
[2018-02-06 14:29] LABS: TOTAL PROTEIN 7.4 g/dL (6.4-8.3)
[2018-02-06 14:30] LABS: TOTAL BILIRUBIN 0.5 mg/dL (0.0-1.0)
[2018-02-06 14:32] LABS: ALKALINE PHOSPHATASE 179 IU/L (3-129); CREATININE 4.2 mg/dL (0.6-1.3); GFR ESTIMATE (CALCULATED) 11 mL/min/
[2018-02-06 14:33] LABS: UREA NITROGEN (BUN) 24 mg/dL (9-23)
[2018-02-06 14:34] LABS: AST (GOT) 17 IU/L (2-34)
[2018-02-06 14:35] LABS: ALT (GPT) 10 IU/L (3-49); CREATINE KINASE 28 IU/L (1-294); TOTAL CK 28 IU/L (1-294)
[2018-02-06 14:37] LABS: TROP-I INTERPRETATION NEGATIVE; TROPONIN-I 0.01 ng/mL (0.0-0.30)
[2018-02-06 14:41] LABS: CK-MB 1.5 ng/mL (0.0-4.9); CKMB RELATIVE INDEX 5.4 (0.0-3.9)
[2018-02-06 19:07] LABS: TROP-I INTERPRETATION NEGATIVE; TROPONIN-I 0.01 ng/mL (0.0-0.30)
[2018-02-06 19:55] VITALS: BP 111/37
== END 2018-02-06 20:24 ==
LOC: EME 13:30
PROVIDERS: Emergency Medicine
DX: R07.9 Chest pain, unspecified (principal); R60.0 Localized edema; Z99.2 Dependence on renal dialysis; Z86.718 Personal history of other venous thrombosis and embolism; Z79.01 Long term (current) use of anticoagulants; N18.9 Chronic kidney disease, unspecified; I50.9 Heart failure, unspecified; J45.909 Unspecified asthma, uncomplicated; F32.9 Major depressive disorder, single episode, unspecified; K21.9 Gastro-esophageal reflux disease without esophagitis; F41.9 Anxiety disorder, unspecified; I25.10 Atherosclerotic heart disease of native coronary artery without angina pectoris; M32.9 Systemic lupus erythematosus, unspecified; Z88.5 Allergy status to narcotic agent
CPT/HCPCS: 71046; 80053; 82550; 82553; 84484; 85027; 93005; 93971; 99281; 99285

== ENCOUNTER → 2018-02-11 | Outpatient (CLI) | payer OTHER | LOC: NUC 11:47 | DX: R07.9 Chest pain, unspecified (principal) | CPT/HCPCS: 78452; 78999; 93017; A9500; J2060; J2785 ==

== ENCOUNTER 2018-02-12 12:00 | Emergency (ER) | payer OTHER ==
[~2018-02-12] VITALS: Ht 167.6 cm; Wt 145.6 kg
[2018-02-12 12:45] VITALS: BP 91/39
== END 2018-02-12 13:21 ==
LOC: EME 12:00
DX: G40.909 Epilepsy, unspecified, not intractable, without status epilepticus (principal); N18.9 Chronic kidney disease, unspecified; Z99.2 Dependence on renal dialysis; F41.9 Anxiety disorder, unspecified; F32.9 Major depressive disorder, single episode, unspecified; I50.9 Heart failure, unspecified; Z88.5 Allergy status to narcotic agent; J45.909 Unspecified asthma, uncomplicated; I95.89 Other hypotension; K21.9 Gastro-esophageal reflux disease without esophagitis; M32.9 Systemic lupus erythematosus, unspecified; G25.81 Restless legs syndrome; I25.10 Atherosclerotic heart disease of native coronary artery without angina pectoris
CPT/HCPCS: 80164; 99281; 99284

== ENCOUNTER 2018-02-18 10:25 | Observation (INO) | payer OTHER ==
[~2018-02-18] VITALS: Ht 167.6 cm; Wt 139.5 kg
[2018-02-18 11:15] LABS: HEMATOCRIT 34.7 % (36.0-46.0); HEMOGLOBIN 11.4 G/DL (11.9-15.5); MCH 37.3 PG (29.0-34.0); MCHC 32.9 G/DL (30.0-36.0); MCV 113.4 FL (83-99); PLATELET COUNT 121 K/uL (156-360); RBC DIS.WIDTH-CV 15.3 % (11.8-14.6); RBC DIS.WIDTH-SD 64.2 % (39-53); RED BLOOD COUNT 3.06 M/uL (3.80-5.20); WHITE BLOOD COUNT 5.5 K/uL (4.1-10.2)
[2018-02-18 11:35] LABS: TROP-I INTERPRETATION NEGATIVE; TROPONIN-I 0.01 ng/mL (0.0-0.30)
[2018-02-18 11:45] LABS: CHLORIDE 96 MEQ/L (99-109); CREATININE 5.4 MG/DL (0.6-1.3); GFR ESTIMATE (CALCULATED) 8 mL/min/; GLUCOSE 114 mg/dL (70-99); POTASSIUM 3.7 MEQ/L (3.7-5.4); SODIUM 138 MEQ/L (136-147); UREA NITROGEN (BUN) 40 mg/dL (9-23)
[2018-02-18] MEDS ORDERED: LOPRESSOR25 MG PO (14:05)
[2018-02-18] MEDS ORDERED: ACULAR 0.5100 DROP/5 BOTH EYES (14:07)
[2018-02-18] MEDS ORDERED: DULCOLAX10 MG PR (14:10)
[2018-02-18] MEDS ORDERED: FLEET ENEMA-AD118 ML PR (14:10)
[2018-02-18 18:16] LABS: TROP-I INTERPRETATION NEGATIVE; TROPONIN-I < 0.01 ng/mL (0.0-0.30)
[2018-02-18 20:26] VITALS: BP 86/50
[2018-02-18 23:03] VITALS: BP 84/47
[2018-02-18 23:31] LABS: TROP-I INTERPRETATION NEGATIVE; TROPONIN-I 0.01 ng/mL (0.0-0.30)
[2018-02-19 07:05] VITALS: BP 90/51
[2018-02-19 11:44] VITALS: BP 104/51
== END 2018-02-19 12:59 ==
LOC: EME 10:25 → EDOF 15:50 → 4SOUTH 15:50 → ENRESERV 16:13 → 4SOUTH 20:00
PROVIDERS: Emergency Medicine; Family Medicine
DX: R07.89 Other chest pain (principal); G89.29 Other chronic pain; E83.59 Other disorders of calcium metabolism; M79.606 Pain in leg, unspecified; N18.6 End stage renal disease; Z99.2 Dependence on renal dialysis; I95.9 Hypotension, unspecified; Z85.528 Personal history of other malignant neoplasm of kidney; K21.9 Gastro-esophageal reflux disease without esophagitis; F41.9 Anxiety disorder, unspecified; F32.9 Major depressive disorder, single episode, unspecified; G25.81 Restless legs syndrome; Z86.718 Personal history of other venous thrombosis and embolism; J44.9 Chronic obstructive pulmonary disease, unspecified; G40.909 Epilepsy, unspecified, not intractable, without status epilepticus; E66.01 Morbid (severe) obesity due to excess calories; Z68.42 Body mass index [BMI] 45.0-49.9, adult; Z86.711 Personal history of pulmonary embolism; D63.1 Anemia in chronic kidney disease; G62.9 Polyneuropathy, unspecified; I48.0 Paroxysmal atrial fibrillation; Z90.5 Acquired absence of kidney; Z90.710 Acquired absence of both cervix and uterus; Z88.5 Allergy status to narcotic agent; Z88.8 Allergy status to other drugs, medicaments and biological substances; Z80.0 Family history of malignant neoplasm of digestive organs; Z80.8 Family history of malignant neoplasm of other organs or systems; Z66 Do not resuscitate
CPT/HCPCS: 71045; 80048; 84484; 85027; 93005; 94799; G0378; J3010

== ENCOUNTER 2018-03-01 07:12 | Emergency (ER) | payer OTHER ==
[~2018-03-01] VITALS: Ht 167.6 cm; Wt 140.2 kg
[~2018-03-01 07:12] MED LIST changes: +ACULAR 0.5100 DROP/5 BOTH EYES
[2018-03-01 08:21] LABS: BASOPHIL (%) 0.6 % (0-1); EOSINOPHIL (%) 3.4 % (0-5); EOSINOPHIL COUNT 0.2 K/uL (0-0.3); HEMATOCRIT 32.8 % (36.0-46.0); HEMOGLOBIN 10.6 G/DL (11.9-15.5); LYMPHOCYTE (%) 33.9 % (15-42); LYMPHOCYTE COUNT 1.7 K/uL (1.0-2.8); MCH 36.8 PG (29.0-34.0); MCHC 32.3 G/DL (30.0-36.0); MCV 113.9 FL (83-99); MONOCYTE (%) 12.3 % (3-12); MONOCYTE COUNT 0.6 K/uL (0-0.8); NEUTROPHIL (%) 47.8 % (45-76); NEUTROPHIL COUNT 2.4 K/uL (1.8-6.4); PLATELET COUNT 90 K/uL (156-360); RBC DIS.WIDTH-CV 15.5 % (11.8-14.6); RBC DIS.WIDTH-SD 65.5 % (39-53); RED BLOOD COUNT 2.88 M/uL (3.80-5.20)
[2018-03-01 08:41] LABS: ALBUMIN 3.2 g/dL (3.2-4.8)
[2018-03-01 08:42] LABS: CHLORIDE 100 mEq/L (99-109); POTASSIUM 5.2 mEq/L (3.7-5.4); SODIUM 138 mEq/L (136-147)
[2018-03-01 08:44] LABS: GLUCOSE 101 mg/dL (70-99); TOTAL PROTEIN 6.2 g/dL (6.4-8.3)
[2018-03-01 08:46] LABS: TOTAL BILIRUBIN 0.4 mg/dL (0.0-1.0)
[2018-03-01 08:47] LABS: ALKALINE PHOSPHATASE 163 IU/L (3-129)
[2018-03-01 08:48] LABS: CREATININE 7.3 mg/dL (0.6-1.3); GFR ESTIMATE (CALCULATED) 6 mL/min/
[2018-03-01 08:49] LABS: AST (GOT) 10 IU/L (2-34); UREA NITROGEN (BUN) 68 mg/dL (9-23)
[2018-03-01 08:50] LABS: ALT (GPT) 8 IU/L (3-49)
[2018-03-01 08:51] LABS: LIPASE 14 U/L (1.0-51.0); TROP-I INTERPRETATION NEGATIVE; TROPONIN-I < 0.01 ng/mL (0.0-0.30)
[2018-03-01 08:56] LABS: CK-MB 1.2 ng/mL (0.0-4.9)
[2018-03-01 09:27] LABS: CKMB RELATIVE INDEX 4.3 (0.0-3.9); CREATINE KINASE 28 IU/L (1-294); TOTAL CK 28 IU/L (1-294)
[2018-03-01 09:37] LABS: VALPROIC ACID (DEPAKOTE) 39.6 MCG/ML (50-100)
[2018-03-01 11:23] VITALS: BP 111/62
== END 2018-03-01 11:32 ==
LOC: EME 07:12
PROVIDERS: Emergency Medicine
DX: G40.909 Epilepsy, unspecified, not intractable, without status epilepticus (principal); R07.9 Chest pain, unspecified; M25.512 Pain in left shoulder; N18.6 End stage renal disease; Z99.2 Dependence on renal dialysis; F41.9 Anxiety disorder, unspecified; F32.9 Major depressive disorder, single episode, unspecified; G25.81 Restless legs syndrome; I25.10 Atherosclerotic heart disease of native coronary artery without angina pectoris; I50.9 Heart failure, unspecified; J45.909 Unspecified asthma, uncomplicated; K21.9 Gastro-esophageal reflux disease without esophagitis; M32.9 Systemic lupus erythematosus, unspecified; Z88.5 Allergy status to narcotic agent; Z88.6 Allergy status to analgesic agent; Z98.1 Arthrodesis status
CPT/HCPCS: 70450; 71045; 72125; 73030; 80053; 80164; 82550; 82553; 83690; 84484; 85025; 93005; 99281; 99285

== ENCOUNTER 2018-03-08 08:15 | Observation (INO) | payer OTHER ==
[~2018-03-08] VITALS: Ht 167.6 cm; Wt 143.3 kg
[2018-03-08 08:48] LABS: HEMATOCRIT 35.2 % (36.0-46.0); HEMOGLOBIN 11.2 G/DL (11.9-15.5); MCH 36.8 PG (29.0-34.0); MCHC 31.8 G/DL (30.0-36.0); MCV 115.8 FL (83-99); PLATELET COUNT 116 K/uL (156-360); RBC DIS.WIDTH-CV 15.5 % (11.8-14.6); RBC DIS.WIDTH-SD 64.8 % (39-53); RED BLOOD COUNT 3.04 M/uL (3.80-5.20)
[2018-03-08 08:55] LABS: INTER. NORMALIZED RATIO 1.1
[2018-03-08 08:58] LABS: CHLORIDE 102 mEq/L (99-109); POTASSIUM 4.7 mEq/L (3.7-5.4); PTT 29.4 SEC (25-37); SODIUM 142 mEq/L (136-147)
[2018-03-08 09:00] LABS: GLUCOSE 95 mg/dL (70-99)
[2018-03-08 09:04] LABS: CREATININE 7.1 mg/dL (0.6-1.3); GFR ESTIMATE (CALCULATED) 6 mL/min/
[2018-03-08 09:05] LABS: UREA NITROGEN (BUN) 49 mg/dL (9-23)
[2018-03-08] MEDS ORDERED: BACITRACIN28.4 GM TP (10:22)
[2018-03-08 19:51] VITALS: BP 97/52
[2018-03-09 00:35] VITALS: BP 111/54
[2018-03-09 04:35] VITALS: BP 98/56
[2018-03-09 08:00] VITALS: BP 102/54
== END 2018-03-09 11:41 ==
LOC: EME 08:15 → EDOF 09:50 → ENRESERV 10:09 → 2EAST 17:29 → 2SOUTH 18:11 → ENRESERV 18:12 → 2EAST 18:51
PROVIDERS: Emergency Medicine
DX: T82.818A Embolism due to vascular prosthetic devices, implants and grafts, initial encounter (principal); T82.858A Stenosis of other vascular prosthetic devices, implants and grafts, initial encounter; I12.0 Hypertensive chronic kidney disease with stage 5 chronic kidney disease or end stage renal disease; N18.6 End stage renal disease; Z90.5 Acquired absence of kidney; K21.9 Gastro-esophageal reflux disease without esophagitis; G25.81 Restless legs syndrome; G40.909 Epilepsy, unspecified, not intractable, without status epilepticus; Z86.711 Personal history of pulmonary embolism; Z86.718 Personal history of other venous thrombosis and embolism; I48.91 Unspecified atrial fibrillation; Z99.2 Dependence on renal dialysis; J44.9 Chronic obstructive pulmonary disease, unspecified; F41.9 Anxiety disorder, unspecified; F32.9 Major depressive disorder, single episode, unspecified; E66.01 Morbid (severe) obesity due to excess calories; E21.3 Hyperparathyroidism, unspecified; D63.1 Anemia in chronic kidney disease; G89.29 Other chronic pain; G62.9 Polyneuropathy, unspecified; Z90.710 Acquired absence of both cervix and uterus; Z85.528 Personal history of other malignant neoplasm of kidney; Z88.5 Allergy status to narcotic agent; Z88.8 Allergy status to other drugs, medicaments and biological substances; Z91.041 Radiographic dye allergy status; Z91.048 Other nonmedicinal substance allergy status; Y83.2 Surgical operation with anastomosis, bypass or graft as the cause of abnormal reaction of the patient, or of later complication, without mention of misadventure at the time of the procedure
CPT/HCPCS: 80048; 85027; 85610; 85730; 93005; 94799; 99281; 99285; C1725; C1769; C1894; G0257; G0378; J0131; J0690; J1170; J1200; J1644; J1720; J3010; S0020

== ENCOUNTER 2018-03-11 07:28 | Emergency (ER) | payer OTHER ==
[~2018-03-11] VITALS: Ht 167.6 cm; Wt 138.4 kg
[~2018-03-11 07:28] MED LIST changes: +BACITRACIN28.4 GM TP
[2018-03-11 07:55] LABS: BASOPHIL (%) 0.3 % (0-1); EOSINOPHIL (%) 3.6 % (0-5); EOSINOPHIL COUNT 0.2 K/uL (0-0.3); HEMATOCRIT 35.8 % (36.0-46.0); HEMOGLOBIN 11.7 G/DL (11.9-15.5); LYMPHOCYTE (%) 35.5 % (15-42); LYMPHOCYTE COUNT 2.2 K/uL (1.0-2.8); MCH 37.1 PG (29.0-34.0); MCHC 32.7 G/DL (30.0-36.0); MCV 113.7 FL (83-99); MONOCYTE (%) 9.7 % (3-12); MONOCYTE COUNT 0.6 K/uL (0-0.8); NEUTROPHIL (%) 48.9 % (45-76); NRBC (%) 0.7 /100 WBC (0-0); PLATELET COUNT 128 K/uL (156-360); RBC DIS.WIDTH-CV 16.1 % (11.8-14.6); RBC DIS.WIDTH-SD 66.1 % (39-53); RED BLOOD COUNT 3.15 M/uL (3.80-5.20); WHITE BLOOD COUNT 6.1 K/uL (4.1-10.2)
[2018-03-11 08:28] LABS: TROP-I INTERPRETATION NEGATIVE; TROPONIN-I < 0.01 ng/mL (0.0-0.30)
[2018-03-11 08:43] LABS: CHLORIDE 99 mEq/L (99-109); POTASSIUM 5.2 mEq/L (3.7-5.4); SODIUM 142 mEq/L (136-147)
[2018-03-11 08:50] LABS: CREATININE 9.1 mg/dL (0.6-1.3); GFR ESTIMATE (CALCULATED) 5 mL/min/
[2018-03-11 09:16] LABS: UREA NITROGEN (BUN) 94 mg/dL (9-23)
[2018-03-11 09:49] LABS: GLUCOSE 76 mg/dL (70-99)
[2018-03-11 10:15] LABS: VALPROIC ACID (DEPAKOTE) 49.5 MCG/ML (50-100)
[2018-03-11 12:22] VITALS: BP 85/43
== END 2018-03-11 12:24 ==
LOC: EME 07:28
PROVIDERS: Emergency Medicine
DX: G40.909 Epilepsy, unspecified, not intractable, without status epilepticus (principal); R07.89 Other chest pain; N18.9 Chronic kidney disease, unspecified; Z99.2 Dependence on renal dialysis; I25.10 Atherosclerotic heart disease of native coronary artery without angina pectoris; I50.9 Heart failure, unspecified; F32.9 Major depressive disorder, single episode, unspecified; F41.9 Anxiety disorder, unspecified; J45.909 Unspecified asthma, uncomplicated; K21.9 Gastro-esophageal reflux disease without esophagitis; M32.9 Systemic lupus erythematosus, unspecified; Z88.5 Allergy status to narcotic agent; Z88.8 Allergy status to other drugs, medicaments and biological substances
CPT/HCPCS: 70450; 71045; 80048; 80164; 83605; 84484; 85025; 93005; J2270

== ENCOUNTER 2018-04-05 10:40 | Emergency (ER) | payer OTHER ==
[~2018-04-05] VITALS: Ht 167.6 cm; Wt 135.0 kg
[2018-04-05 11:50] LABS: BASOPHIL (%) 0.8 % (0-1); EOSINOPHIL (%) 3.6 % (0-5); EOSINOPHIL COUNT 0.1 K/uL (0-0.3); HEMATOCRIT 39.5 % (36.0-46.0); HEMOGLOBIN 12.7 G/DL (11.9-15.5); IMMATURE GRANULOCYTE (%) 0.8 % (0.0-0.7); LYMPHOCYTE (%) 34.3 % (15-42); LYMPHOCYTE COUNT 1.3 K/uL (1.0-2.8); MCH 36.7 PG (29.0-34.0); MCHC 32.2 G/DL (30.0-36.0); MCV 114.2 FL (83-99); MONOCYTE (%) 10.7 % (3-12); MONOCYTE COUNT 0.4 K/uL (0-0.8); NEUTROPHIL (%) 49.8 % (45-76); NRBC (%) 0.5 /100 WBC (0-0); PLATELET COUNT 119 K/uL (156-360); RBC DIS.WIDTH-CV 15.3 % (11.8-14.6); RBC DIS.WIDTH-SD 63.8 % (39-53); RED BLOOD COUNT 3.46 M/uL (3.80-5.20); WHITE BLOOD COUNT 3.9 K/uL (4.1-10.2)
[2018-04-05 11:56] LABS: ALBUMIN 3.8 g/dL (3.2-4.8)
[2018-04-05 11:57] LABS: CHLORIDE 95 mEq/L (99-109); POTASSIUM 3.8 mEq/L (3.7-5.4); SODIUM 138 mEq/L (136-147)
[2018-04-05 11:59] LABS: GLUCOSE 93 mg/dL (70-99); TOTAL PROTEIN 7.4 g/dL (6.4-8.3)
[2018-04-05 12:01] LABS: TOTAL BILIRUBIN 0.7 mg/dL (0.0-1.0)
[2018-04-05 12:02] LABS: ALKALINE PHOSPHATASE 176 IU/L (3-129); CREATININE 4.5 mg/dL (0.6-1.3); GFR ESTIMATE (CALCULATED) 10 mL/min/
[2018-04-05 12:04] LABS: AST (GOT) 20 IU/L (2-34); UREA NITROGEN (BUN) 17 mg/dL (9-23)
[2018-04-05 12:09] LABS: TROP-I INTERPRETATION NEGATIVE; TROPONIN-I < 0.01 ng/mL (0.0-0.30)
[2018-04-05 12:22] LABS: ALT (GPT) 9 IU/L (3-49)
[2018-04-05 12:23] LABS: LIPASE 35 U/L (1.0-51.0)
[2018-04-05 12:39] LABS: APPEARANCE CLEAR ((CLEAR)); BILIRUBIN NEGATIVE; BLOOD SMALL; COLOR YELLOW ((YELLOW)); GLUCOSE (STRIP) NEGATIVE; KETONES NEGATIVE; LEUKOCYTES NEGATIVE; NITRITE NEGATIVE; PROTEIN (STRIP) 100; UROBILINOGEN 0.2 MG/DL (0.2-1.0)
[2018-04-05 12:47] LABS: CELLULAR CASTS 0-5 /LPF; HYALINE CASTS 0-5 /LPF
[2018-04-05 12:51] LABS: BACTERIA RARE /HPF; EPITHELIAL CELLS 1+ /HPF; MUCUS NONE SEEN /LPF; UCUL ADDED? NO; WHITE BLOOD CELLS 0-5 /HPF (0-5)
[2018-04-05 15:21] VITALS: BP 84/46
== END 2018-04-05 15:23 | disposition home or self-care (01) ==
LOC: EME 10:40
PROVIDERS: Emergency Medicine
DX: R10.9 Unspecified abdominal pain (principal); N18.6 End stage renal disease; Z99.2 Dependence on renal dialysis; J45.909 Unspecified asthma, uncomplicated; K21.9 Gastro-esophageal reflux disease without esophagitis; I25.10 Atherosclerotic heart disease of native coronary artery without angina pectoris; I50.9 Heart failure, unspecified; M32.9 Systemic lupus erythematosus, unspecified; G25.81 Restless legs syndrome; R56.9 Unspecified convulsions; F32.9 Major depressive disorder, single episode, unspecified; F41.9 Anxiety disorder, unspecified; F31.9 Bipolar disorder, unspecified; Z88.5 Allergy status to narcotic agent; Z88.6 Allergy status to analgesic agent; Z91.041 Radiographic dye allergy status
CPT/HCPCS: 74176; 80053; 81003; 83690; 84484; 85025; 93005

== ENCOUNTER 2018-04-15 08:13 | Emergency (ER) | payer OTHER ==
[~2018-04-15] VITALS: Ht 175.3 cm; Wt 135.8 kg
[2018-04-15 08:40] LABS: HEMATOCRIT 37.9 % (36.0-46.0); HEMOGLOBIN 12.3 G/DL (11.9-15.5); MCH 36.7 PG (29.0-34.0); MCHC 32.5 G/DL (30.0-36.0); MCV 113.1 FL (83-99); PLATELET COUNT 111 K/uL (156-360); RBC DIS.WIDTH-CV 15.2 % (11.8-14.6); RBC DIS.WIDTH-SD 64.2 % (39-53); RED BLOOD COUNT 3.35 M/uL (3.80-5.20); WHITE BLOOD COUNT 5.2 K/uL (4.1-10.2)
[2018-04-15 08:48] LABS: ALBUMIN 3.4 g/dL (3.2-4.8); CHLORIDE 102 mEq/L (99-109); POTASSIUM 4.7 mEq/L (3.7-5.4); SODIUM 138 mEq/L (136-147)
[2018-04-15 08:51] LABS: GLUCOSE 88 mg/dL (70-99); TOTAL PROTEIN 6.6 g/dL (6.4-8.3)
[2018-04-15 08:52] LABS: TOTAL BILIRUBIN 0.4 mg/dL (0.0-1.0)
[2018-04-15 08:54] LABS: ALKALINE PHOSPHATASE 164 IU/L (3-129); CREATININE 8.9 mg/dL (0.6-1.3); GFR ESTIMATE (CALCULATED) 5 mL/min/
[2018-04-15 08:56] LABS: AST (GOT) 17 IU/L (2-34)
[2018-04-15 08:57] LABS: ALT (GPT) 11 IU/L (3-49)
[2018-04-15 09:00] LABS: TROP-I INTERPRETATION NEGATIVE; TROPONIN-I < 0.01 ng/mL (0.0-0.30)
[2018-04-15 09:32] LABS: UREA NITROGEN (BUN) 68 mg/dL (9-23)
[2018-04-15 11:37] LABS: TROP-I INTERPRETATION NEGATIVE; TROPONIN-I < 0.01 ng/mL (0.0-0.30)
[2018-04-15 18:37] VITALS: BP 88/48
== END 2018-04-15 18:37 ==
LOC: EME 08:13 → EDOF 10:01 → ENRESERV 10:04 → CANRESERV 10:04 → EDOF 10:05 → EME 18:37
PROVIDERS: Internal Medicine; Physician Assistant
DX: R07.9 Chest pain, unspecified (principal); G40.909 Epilepsy, unspecified, not intractable, without status epilepticus; N18.9 Chronic kidney disease, unspecified; Z99.2 Dependence on renal dialysis; F32.9 Major depressive disorder, single episode, unspecified; F41.9 Anxiety disorder, unspecified; G25.81 Restless legs syndrome; I25.10 Atherosclerotic heart disease of native coronary artery without angina pectoris; I50.9 Heart failure, unspecified; J45.909 Unspecified asthma, uncomplicated; K21.9 Gastro-esophageal reflux disease without esophagitis; M32.9 Systemic lupus erythematosus, unspecified; Z88.5 Allergy status to narcotic agent; Z88.6 Allergy status to analgesic agent; Z91.041 Radiographic dye allergy status
CPT/HCPCS: 71045; 80053; 80164; 81003; 82948; 84484; 85027; 93005; 99281; 99285; G0378; J1200; J2060; J7040; S0028